=== PATIENT | male | born 1955 | race Caucasian/White ===

== ENCOUNTER 2016-10-17 06:14 | Inpatient (IN) | payer MEDICARE, MEDICAID ==
[~2016-10-17] VITALS: Ht 190.5 cm; Wt 92.3 kg
[2016-10-17] VITALS (9 sets, daily range): BP systolic 100–131; BP diastolic 59–80
--- NOTE | ~2016-10-17 | PR ---
[place], [place] PROGRESS NOTE NAME: PAU PIMENTEL UNIT #: [id number] ROOM: 416 DOCTOR: GEM ROMERO MD BIRTHDATE: [birth year] DOS: 10/18/2016 REASON FOR VISIT: Congestive heart failure. HISTORY OF PRESENT ILLNESS: The patient is feeling better, less short of breath, denies any PND or orthopnea. Edema is much better. No chest pain. No palpitations or dizziness. No nausea, vomiting. No headaches. No blurred vision, double vision, no tingling, numbness or weakness. No hematemesis, no hemoptysis. REVIEW OF SYSTEMS: Review of the 8 systems negative except as mentioned above. RHYTHM STRIPS: The patient was in sinus rhythm. PHYSICAL EXAMINATION: VITAL SIGNS: Blood pressure 102/58, pulse 65, respiratory rate is 16. GENERAL: Alert, comfortable, in no acute distress. HEENT: Pupils are round and equal. No jaundice. NECK: Supple, no distended neck veins, no carotid bruit. CHEST: Symmetrical, nontender. ICD site is unremarkable. LUNGS: Good air entry bilaterally. HEART: Regular rhythm, no S3, grade 1-2/6 systolic murmur. ABDOMEN: Bowel sounds normal. EXTREMITIES: Showed trace edema. Distal pulses are palpable. SKIN: Warm and dry. No cyanosis, no clubbing. IMPRESSION: 1. Acute on chronic systolic heart failure, improving. 2. Severe LV dysfunction with EF 10% by echo in 2014. 3. Coronary artery disease, status post 4 stents, the recent stent is about a year ago. 4. Mild valvular heart disease. 5. Status post ICD. RECOMMENDATIONS: 1. Continue current medications. 2. Tomorrow switch to the Lasix p.o. and he is tolerating low dose Coreg. 3. Resume his home medications, digoxin and Aldactone. 4. Possible discharge tomorrow and he will follow with his revenue stamp clerk, Dr. Bishop in 1-2 weeks. The above treatment was discussed with the patient and his family members and all questions were answered. [place], [place] PROGRESS NOTE NAME: PAU PIMENTEL UNIT #: [id number] ROOM: 416 DOCTOR: HEATHERGEM HWANG MD BIRTHDATE: [birth year] GEM ROMERO MD CM:PNMARIA ANTONIA [id number] GEM ROMERO MD 10/18/16 2118 interface
--- NOTE | ~2016-10-17 | CON ---
[place], [place] REPORT OF CONSULTATION NAME: PAU PIMENTEL [facility] #: [id number] UNIT #: [id number] ROOM: 416 DOCTOR: HUSSAIN CARPENTER MD BIRTHDATE: [birth year] DOS: 10/18/2016 PULMONARY CONSULTATION, EVALUATION AND MANAGEMENT REASON FOR CONSULTATION: Assess the patient's current pleural fluid. HISTORY OF PRESENT ILLNESS: This is a 61-year-old white male who has been recently admitted to the hospital. The patient has been noted with AICD discharge for this patient and discharged home for this patient on the of this month after medical management of that kind of problem. He presented to the hospital Emergency Room on 10/17/2016 with symptoms of near syncopal episode, shortness of breath with exertion and chest pain. Chest pain was described across the chest. The symptoms of the patient have been ongoing for the past couple of days as well. The patient has been noted with very severe cardiomyopathy, which is noted ischemic in nature at 10% EF. The patient has been noted with symptoms of mild cough. Denies symptoms of wheezing. He does complain of symptoms of tightness in the chest. The patient denies symptoms of hemoptysis. REVIEW OF SYSTEMS: CONSTITUTIONAL: This patient, which has been noted with fatigue and tiredness. Denies symptoms of fever or chills. EYES: Denies any burning, redness, or tenderness. EARS, NOSE, THROAT: No sore throat, hoarseness, otalgia, postnasal drainage. CARDIOVASCULAR SYSTEM: Denies anginal pain, edema or pain of the lower extremities. GASTROINTESTINAL: Denies dysphagia, nausea, vomiting, diarrhea, abdominal pain, hematemesis, melena, hematochezia, or abnormal weight loss history. GENITOURINARY: Denies dysuria, suprapubic pain, hematuria. MUSCULOSKELETAL: Denies acute joint pain, redness, or tenderness. SKIN: No lesions or rashes. Remaining systems were reviewed with the patient, they were noted all negative. PAST MEDICAL HISTORY: 1. History of chronic congestive heart failure with ischemic cardiomyopathy, left ventricular ejection fraction 10%. 2. History of cardiac dysrhythmia with AICD in place. 3. Coronary artery disease. 4. Secondary hypercoagulable state for this patient was also described in the history. 5. Hyperlipidemia. SOCIAL HISTORY: The patient stated that he is , lives at home. He does not have any history of occupation related pulmonary exposure history. Tobacco use noted since teenager, 2 packs of cigarettes per day that was discontinued in 2016. He is and has 3 children. PAST SURGICAL HISTORY: 1. Cardiac catheterization, coronary artery stent insertion. [place], [place] REPORT OF CONSULTATION NAME: PAU PIMENTEL UNIT #: [id number] ROOM: 416 DOCTOR: HUSSAIN CARPENTER MD BIRTHDATE: [birth year] 2. AICD insertion. 3. Left cataract extraction. 4. Right index finger amputation as well. FAMILY HISTORY: The patient reported as father at age of 7070 years old, complication of heart attack and congestive heart failure. Mother at the age of 7070 years old for this patient from complication related to congestive heart failure as well. HOME MEDICATIONS: Noted use of aspirin, albuterol sulfate, Plavix, digoxin, furosemide, warfarin, Aldactone and simvastatin. DRUG ALLERGIES: Noted with no known drug allergies. PHYSICAL EXAMINATION: GENERAL: A 61-year-old white male who has been currently noted to be awake and alert at this time without any acute distress. The height for the patient recorded by the nursing staff at the time of current admission with height of 6 feet 3 inches, weight of 90 kg, BMI 25.7. VITAL SIGNS: For the patient, which has been recorded shows temperature noted as normal. The respiratory recorded 18-22, heart rate of 75-65, blood pressure 102/58-131/77. Pulse oxygen saturation of the patient recorded on room air 98% saturation. HEENT: Shows head was atraumatic. Eyes nonicterus. NECK: Supple. CARDIOVASCULAR SYSTEM: S1, S2 is audible. LUNGS: For this patient was noted without any crackles. Breaths are noted decreased in the right lung. The left lung was noted clear. ABDOMEN: Soft, nontender. Bowel sounds are present. It was flat. CENTRAL NERVOUS SYSTEM: Cranial nerves 2-12 intact. No focal deficits. MUSCULOSKELETAL: No deformities for this patient or swelling or redness. SKIN: No lesions or rashes. LABORATORY DATA: The PT/INR for the patient that were done yesterday noted 4.3 with D-dimer 0.92. The CMP for this patient on 10/17/2016 shows glucose 180, BUN and creatinine was normal. The CK-MB and troponin for the patient, which were done yesterday and this morning all 4 sets were normal. CBC of the patient that was done yesterday on admission was noted as a normal CBC. CMP of the patient that was done yesterday on admission showed normal BUN and creatinine. CMP of this morning shows glucose 127. Remaining CMP remains normal. CBC this morning was again noted normal WBC count, platelet count, hemoglobin and hematocrit. The INR this morning noted 2.2, decreased from the previous level and PTT were noted 32.6. The labs on this patient, CT scan of the head that was done on 10/17/2016 on admission was noted no acute intracranial pathologies. Chest x-ray of the patient that was done on admission shows evidence of pleural fluid appeared to be loculated in the right side. The chest x-ray of the patient AICD noted in place. Chest x-ray of the patient that was done on previous admission 10/06/2016 for the patient shows prominent pulmonary arterial branches with infiltration and pleural fluid was noted. Small pleural fluid was suspected in the right lung. The CT of the chest yesterday the patient was also [place], [place] REPORT OF CONSULTATION NAME: PAU PIMENTEL UNIT #: [id number] ROOM: 416 DOCTOR: WALE CARPENTER MDM BIRTHDATE: [birth year] reviewed shows there was no evidence of pulmonary embolism. The patient was noted with cardiomegaly with moderate to large partially loculated pleural fluid on the right side as well. Depending area of atelectasis noted in the left lower lung. A 2 cm hypodense left adrenal lesion noted further characterization was not done by the radiologist. IMPRESSION: 1. The patient who has been noted interval development of partially loculated right pleural fluid may be related to the congestive heart failure with the loculation with other differential diagnosis of pneumonia, malignancy and other disorders remains in consideration. 2. The patient with severe ischemic cardiomyopathy. The patient which has been known previously cardiac dysrhythmias as well by history. 3. Chronic anticoagulation. The patient with mild Coumadin toxicity on admission, which has been gradually improving. 3. History of having nicotine abuse without any previous diagnosis, pulmonary disease with suspected diagnosis of chronic obstructive pulmonary disease as well. PLAN OF TREATMENT: Keep the patient off the anticoagulation. The CT/ultrasound-guided thoracentesis was done loculated pleural fluid to be done by the interventional radiologist either today or tomorrow to be done. Fluid will be analyzed. At this time, the patient has not been started on antibiotics for this patient since he was not showing any signs or manifestations of fever or chills or signs of acute sepsis or infection. Continuation of the other previous treatment and his home medications. Keep the patient off the anticoagulation for the thoracentesis completion. Cytology of pleural fluid the patient will be done. Other labs will be done including the cultures. Further treatment changes will be done based on progression of the illness and availability of the information in the next few days for the patient pleural fluid or others. If the fluid would not be able to resolve the patient and noted an exudative effusion the patient possibly will be recommended about assessment for the video-assisted thoracoscopy procedure. Assessment and management has been discussed one of the patient's children as well as his spouse in detail in the room. Thank you for allowing me to participate in the care of this patient. HUSSAIN BARKSDALE MD CM:CONSTR:REPORT OF CONSULTATION 1123 10/19/16 1329 interface
--- NOTE | ~2016-10-17 | CON ---
[place], [place] REPORT OF [facility]ULTATION [id number] UNIT #: [id number] ROOM: 416 DOCTOR: GEM ROMERO MD BIRTHDATE: [birth year] DOS: 10/17/2016 REASON FOR CONSULTATION: CHF. HISTORY OF PRESENT ILLNESS: The patient is a 61-year-old gentleman with history of coronary artery disease, severe ischemic cardiomyopathy, status post ICD came to the Emergency Room with dyspnea on exertion. He also had some dizziness as well as some midsternal chest pains at rest. His shortness of breath is slightly progressive. He has been compliant with his medications at home and does not eat excessive sodium. His zoology teacher is in [place], Dr. Chavez. He denies any palpitations or syncope. No edema or orthopnea, no PND, no fever or chills. No nausea, vomiting, diarrhea. No dysuria or hematuria. No blurry vision, double vision. No joint pains or swelling. No headaches. REVIEW OF SYSTEMS: Review of the 8 systems negative except as mentioned above. Notes that his chest pains are dull pain in the midsternal area at rest. No radiation. It lasts for a few seconds to minutes and relieves on its own. PAST MEDICAL HISTORY: 1. Coronary artery disease, status post total of 4 stents, last stent was about a year ago. 2. Severe ischemic cardiomyopathy, EF of 10% by echo 2014. 3. Status post ICD about 2 years ago. 4. Hypertension. 5. Valvular heart disease. 6. Anemia. PAST SURGICAL HISTORY: 1. History of ICD implant. 2. Amputation of the right finger. 3. Left cataract surgery. SOCIAL HISTORY: The patient quit about a year ago, used to smoke 2 packs a day, does not use alcohol, does not use illicit drugs. FAMILY HISTORY: Father at the age of 70s from heart attack. Mother in 70s due to heart failure. ALLERGIES: No known drug allergies. HOME MEDICATIONS: Reviewed. He was not on beta blockers or ELIGIO at home. PHYSICAL EXAMINATION: VITAL SIGNS: Blood pressure 105/60, pulse 66, respiratory rate 20. GENERAL: Alert, comfortable, in no acute distress. HEENT: Pupils are round and equal. No jaundice. Tongue was moist and pharynx was clear. NECK: Supple, no distended neck veins, no carotid bruit. CHEST: Symmetrical, nontender. ICD is unremarkable. LUNGS: Clear to auscultation bilaterally. Air entry diminished at the bases, [place], [place] REPORT OF CONSULTATION NAME: PAU PIMENTEL UNIT #: [id number] ROOM: 416 DOCTOR: GEM ROMERO MD BIRTHDATE: [birth year] especially in the right base. ABDOMEN: Benign, nontender. Bowel sounds normal. EXTREMITIES: Showed 1+ edema. SKIN: Warm and dry. No cyanosis, no clubbing. Distal pulses are palpable. NEUROLOGIC: The patient is alert, oriented. No focal neurologic deficit. RECTAL: Deferred. GENITOURINARY: Deferred. MUSCULOSKELETAL: No joint tenderness or swelling. PSYCHIATRIC: Good mood and affect. REVIEW OF THE DIAGNOSTIC TESTS: Labs and EKG reviewed. EKG sinus rhythm with borderline LVH. INR 4.3. CBC, chemistry and labs noted. IMPRESSION: 1. Acute on chronic systolic heart failure. 2. Severe ischemic cardiomyopathy, EF 10%. 3. Status post ICD. 4. Coronary artery disease, status post 4 stents, recent stent was 2015, details unknown. 5. Coagulopathy. RECOMMENDATIONS: 1. Continue diuretics and monitor daily weights and in and outs. 2. Start low dose beta marycruz, Coreg 3.125 b.i.d. and monitor his blood pressures. 3. Continue the rest of the cardiac medications including aspirin, Plavix, Aldactone and digoxin. 4. If the blood pressure and renal functions are stable, I would consider adding a low-dose ELIGIO inhibitors. 5. 2-D echo was ordered and is pending. 6. Hold his Coumadin and resume Coumadin when his INR comes to below 2.5. GEM ROMERO MD CM:CONSTR:REPORT OF CONSULTATION 2248 10/18/16 0525 interface
--- NOTE | ~2016-10-17 | PR ---
[place], [place] PROGRESS NOTE NAME: PAU PIMENTEL [facility] #: [id number] UNIT #: [id number] ROOM: 416 DOCTOR: SHAMIR ENAMORADO MD,HUSSAIN BIRTHDATE: [birth year] DOS: 10/19/2016 SUBJECTIVE: The patient was seen and examined on 10/19/2016. He has been noted much improvement in the shortness of breath. The patient underwent thoracentesis yesterday with 800 mL of pleural fluid removed from the right pleural space without any difficulty. The patient denies symptoms of chest pain, abdominal pain. OBJECTIVE: VITAL SIGNS: Shows the normal temperature, respirations 16, heart rate 59, blood pressure 94/56-105/69. Intake for the patient is 980 mL; output 2800 mL containing 800 mL of pleural fluid as well. The pulse oxygen saturation on room air was 98% saturation. HEENT: Shows no new changes. NECK: Supple. CARDIOVASCULAR SYSTEM: S1, S2 audible. LUNGS: The patient noted with much improvement in the air entry of the lungs were noted bilaterally and especially in the right side. ABDOMEN: Soft, nontender. LABORATORY DATA: The BMP of the patient noted normal BUN, creatinine and the other chemistry. CBC of the patient noted mild anemia, normal WBC count and platelet count. Characteristics of the right pleural fluid the patient was noted with total of 178 wbc's in the cell count, 39% neutrophils, 43% lymphocytes and various other cells. Glucose 141 in the chemistry noted. Total protein of 2.3. LDH 75, cholesterol less than 50, triglyceride 13. Amylase 19 and albumin 1.5. All the findings were noted consistent with transudative pleural effusion. The cytology of pleural fluid was pending. The culture for the patient's pleural fluid for this patient were pending as well; however, the Gram stain does not show any organism, moderate wbc's were noted. The chest x-ray that I ordered for this patient this morning, PA lateral view, the patient was reviewed with the patient shows marked improvement in resolution of pleural fluid for this patient, which was noted partially loculated previously. Clear lungs were noted. Lungs were noted well expanded. The AICD noted in place in the left chest. IMPRESSION: The patient with severe ischemic cardiomyopathy with pleural fluid. The patient is status post thoracentesis for the patient consistent with transudative effusion related to underlying congestive heart failure is most likely reason. Cytology of pleural fluid was pending. PLAN OF TREATMENT: He has been noted stable enough at this time ambulating with the patient with current resolution of pleural fluid could be considered for home discharge. Continue treatment for the congestive heart failure to optimize the treatment under care of Cardiology. Outpatient follow would be suggested for patient post-discharge in my office to reassess. [place], [place] PROGRESS NOTE NAME: PAU PIMENTEL Andrea UNIT #: [id number] ROOM: [facility] DOCTOR: HUSSAIN CARPENTER MD BIRTHDATE: [birth year] HUSSAIN BARKSDALE MD CM:PNTRANS [id number] HUSSAIN ENAMORADO MD 10/19/16 1217 interface
[~2016-10-17 06:14] MED LIST: ALBUTEROL0.09 MG/A2 IH; ALDACTONE25 M1 PO; ASPIRIN325 M2 PO; ASPIRIN325 MG PO; COREG3.125 MG PO; Clopidogrel75 MG PO; DIGOXIN0.125 MG PO; LASIX20 MG PO; LASIX40 MG PO; LISINOPRIL5 MG PO; LOVASTATIN40 MG PO; METOPROLOL SR50 MG PO; PROAIR HFA8.5 GM IH; SERTRALINE HYDR25 MG PO; SIMVASTATIN20 MG PO; WARFARIN SODIUM4 MG PO
[2016-10-17 06:29] LABS: BASO % 0.6 % (0.0-1.0); EOS # 0.1 10*3/uL (0.0-0.4); HEMATOCRIT 42.7 % (42.0-52.0); HEMOGLOBIN 14.3 g/dl (14.0-18.0); LYMPH # 0.8 10*3/uL (1.3-4.4); LYMPH % 11.4 % (27.0-41.0); MEAN CELL VOLUME 94.5 fl (80.0-94.0); MEAN CORPUSCULAR HGB 31.6 pg (27.0-31.0); MEAN CORPUSCULAR HGB CONC 33.5 g/dl (33.0-37.0); MONO # 0.6 10*3/uL (0.1-1.0); MONO % 8.2 % (3.0-9.0); NEUT # 5.4 10*3/uL (2.3-7.9); NEUT % 78.5 % (47.0-73.0); PLATELET COUNT AUTOMATED 195 10*3/uL (130-400); RED BLOOD COUNT 4.52 10*6/uL (4.50-5.90); RED CELL DISTRI WIDTH 13.7 % (0-14.5); WHITE BLOOD COUNT 6.9 10*3/uL (4.8-10.8)
[2016-10-17 06:45] LABS: INTERNATIONAL NORM RATIO 4.3 (2.0-3.5); PROTHROMBIN TIME 50.5 SECONDS (9.0-12.4)
[2016-10-17 06:48] LABS: ALKALINE PHOSPHATASE 77 U/L (45-117); BILIRUBIN, TOTAL 0.9 mg/dl (0.2-1.0); BUN 13 mg/dl (7-24); CARBON DIOXIDE 27 mmol/L (21-32); CHLORIDE 103 mmol/L (98-107); EST GLOM FILT AFRICAN AMERICAN > 60 ml/min; GLUCOSE 108 mg/dL (65-99); MAGNESIUM 2.3 mg/dL (1.5-2.1); POTASSIUM 4.5 mmol/L (3.5-5.1); SGOT/AST 20 IU/L (3-35); SGPT/ALT 21 U/L (12-78); SODIUM 140 mmol/L (136-145); TOTAL PROTEIN 7.9 gm/dL (6.4-8.2); TROPONIN I 0.041 ng/ml (<0.045)
[2016-10-17 12:14] LABS: TROPONIN I 0.041 ng/ml (<0.045)
[2016-10-17 17:33] LABS: TROPONIN I 0.037 ng/ml (<0.045)
[2016-10-18] VITALS: BP 97/54
[2016-10-18 00:56] LABS: CKMB 2.5 ng/ml (0.5-3.6)
[2016-10-18 01:02] LABS: TROPONIN I 0.048 ng/ml (<0.045)
[2016-10-18 06:48] LABS: BASO % 0.4 % (0.0-1.0); HEMATOCRIT 43.8 % (42.0-52.0); HEMOGLOBIN 14.6 g/dl (14.0-18.0); LYMPH # 0.5 10*3/uL (1.3-4.4); LYMPH % 9.1 % (27.0-41.0); MEAN CELL VOLUME 94.2 fl (80.0-94.0); MEAN CORPUSCULAR HGB 31.4 pg (27.0-31.0); MEAN CORPUSCULAR HGB CONC 33.3 g/dl (33.0-37.0); MEAN PLATELET VOLUME 10.6 fl (9.6-12.3); MONO # 0.2 10*3/uL (0.1-1.0); MONO % 3.9 % (3.0-9.0); NEUT # 4.5 10*3/uL (2.3-7.9); NEUT % 86.2 % (47.0-73.0); PLATELET COUNT AUTOMATED 228 10*3/uL (130-400); RED BLOOD COUNT 4.65 10*6/uL (4.50-5.90); RED CELL DISTRI WIDTH 13.3 % (0-14.5); WHITE BLOOD COUNT 5.2 10*3/uL (4.8-10.8)
[2016-10-18 07:23] LABS: BUN 15 mg/dl (7-24); CARBON DIOXIDE 28 mmol/L (21-32); CHLORIDE 101 mmol/L (98-107); CHOLESTEROL 154 mg/dL (<200); EST GLOM FILT AFRICAN AMERICAN > 60 ml/min; GLUCOSE 127 mg/dL (65-99); MAGNESIUM 2.4 mg/dL (1.5-2.1); PHOSPHOROUS 2.8 mg/dL (2.5-4.9); POTASSIUM 4.2 mmol/L (3.5-5.1); SGOT/AST 13 IU/L (3-35); SGPT/ALT 22 U/L (12-78); SODIUM 138 mmol/L (136-145); TOTAL PROTEIN 8.6 gm/dL (6.4-8.2)
[2016-10-18 07:26] LABS: ALKALINE PHOSPHATASE 91 U/L (45-117); BILIRUBIN, TOTAL 1.4 mg/dl (0.2-1.0); HDL CHOLESTEROL 42 mg/dl (40-60); LDL CHOLESTEROL 99 mg/dL (9-159); TRIGLYCERIDES 67 mg/dl (<150); VLDL CHOLESTEROL 13 mg/dL (6-40)
[2016-10-18 07:29] LABS: INTERNATIONAL NORM RATIO 2.2 (2.0-3.5); PROTHROMBIN TIME 24.1 SECONDS (9.0-12.4)
[2016-10-18 07:32] LABS: VITAMIN D, 25-HYDROXY 19.7 ng/mL (30-100)
[2016-10-18 07:33] LABS: FOLIC ACID 23.8 ng/mL (>5.38)
[2016-10-18 08:00] VITALS: BP 102/58
[2016-10-18 10:25] VITALS: BP 118/80
[2016-10-18 12:00] VITALS: BP 102/64
[2016-10-18 13:56] LABS: BODY FLUID RBC 1000 /uL
[2016-10-18 14:00] LABS: BODY FLUID TYPE PLEURAL; BODY FLUID WBC 178 /uL
[2016-10-18 14:14] LABS: BODY FLUID ALBUMIN 1.5 g/dL; BODY FLUID AMYLASE 19 U/L; BODY FLUID CHOLESTEROL < 50 mg/dl; BODY FLUID GLUCOSE 141 mg/dl; BODY FLUID LDH 75 IU/L; BODY FLUID PROTEIN 2.3 g/dl; BODY FLUID TRIGLYCERIDE 13 mg/dl
[2016-10-18 14:27] LABS: BF LYMPHOCYTES 43 %; BF MACROPHAGES 8 %; BF MESOTHELIALS 9 %; BF NEUTROPHILS 39 %
[2016-10-18 16:00] VITALS: BP 117/72
[2016-10-18 20:00] VITALS: BP 105/69
[2016-10-19] VITALS: BP 95/56
[2016-10-19 06:57] LABS: BASO % 0.5 % (0.0-1.0); EOS # 0.1 10*3/uL (0.0-0.4); HEMATOCRIT 41.3 % (42.0-52.0); HEMOGLOBIN 13.8 g/dl (14.0-18.0); LYMPH # 0.9 10*3/uL (1.3-4.4); LYMPH % 10.5 % (27.0-41.0); MEAN CELL VOLUME 94.3 fl (80.0-94.0); MEAN CORPUSCULAR HGB 31.5 pg (27.0-31.0); MEAN CORPUSCULAR HGB CONC 33.4 g/dl (33.0-37.0); MEAN PLATELET VOLUME 10.8 fl (9.6-12.3); MONO # 0.5 10*3/uL (0.1-1.0); MONO % 6.7 % (3.0-9.0); NEUT # 6.6 10*3/uL (2.3-7.9); NEUT % 80.9 % (47.0-73.0); PLATELET COUNT AUTOMATED 231 10*3/uL (130-400); RED BLOOD COUNT 4.38 10*6/uL (4.50-5.90); RED CELL DISTRI WIDTH 13.4 % (0-14.5); WHITE BLOOD COUNT 8.1 10*3/uL (4.8-10.8)
[2016-10-19 07:29] LABS: BUN 20 mg/dl (7-24); CARBON DIOXIDE 27 mmol/L (21-32); CHLORIDE 101 mmol/L (98-107); EST GLOM FILT AFRICAN AMERICAN > 60 ml/min; GLUCOSE 88 mg/dL (65-99); POTASSIUM 3.8 mmol/L (3.5-5.1); SODIUM 140 mmol/L (136-145)
[2016-10-19 07:35] LABS: INTERNATIONAL NORM RATIO 1.7 (2.0-3.5); PROTHROMBIN TIME 18.3 SECONDS (9.0-12.4)
[2016-10-19 08:00] VITALS: BP 94/56
[2016-10-19 10:07] VITALS: BP 95/65
[2016-10-19] MEDS ORDERED: D-1000 185 MG-11 TAB PO (10:38)
[2016-10-19] MEDS ORDERED: LASIX40 MG PO (10:38)
[2016-10-19] MEDS ORDERED: CARVEDILOL3.125 MG PO (10:41)
[2016-10-19 12:00] VITALS: BP 108/76
== END 2016-10-19 12:29 | disposition home or self-care (01) | DRG 291 ==
LOC: ED 06:14 → 4E 09:48 → EDHOLD 09:48 → 4E 10:21
PROVIDERS: Emergency Medicine Emergency Medical Services; Hospitalist; Internal Medicine; Internal Medicine Critical Care Medicine
PROC: 0W993ZZ Drainage of Right Pleural Cavity, Percutaneous Approach (ICD-10-PCS; principal; 2016-10-18)
PROC: 30233K1 Transfusion of Nonautologous Frozen Plasma into Peripheral Vein, Percutaneous Approach (ICD-10-PCS; principal; 2016-10-18)
PROC: 30233L1 Transfusion of Nonautologous Fresh Plasma into Peripheral Vein, Percutaneous Approach (ICD-10-PCS; principal; 2016-10-18)
DX: I11.0 Hypertensive heart disease with heart failure (principal); J18.9 Pneumonia, unspecified organism; D68.9 Coagulation defect, unspecified; D68.69 Other thrombophilia; E83.41 Hypermagnesemia; Z79.01 Long term (current) use of anticoagulants; I25.5 Ischemic cardiomyopathy; E78.5 Hyperlipidemia, unspecified; I34.0 Nonrheumatic mitral (valve) insufficiency; I50.23 Acute on chronic systolic (congestive) heart failure; D53.9 Nutritional anemia, unspecified; R00.1 Bradycardia, unspecified; R06.82 Tachypnea, not elsewhere classified; R22.9 Localized swelling, mass and lump, unspecified; T45.515A Adverse effect of anticoagulants, initial encounter; J44.9 Chronic obstructive pulmonary disease, unspecified; I25.118 Atherosclerotic heart disease of native coronary artery with other forms of angina pectoris; Z82.49 Family history of ischemic heart disease and other diseases of the circulatory system; Z95.810 Presence of automatic (implantable) cardiac defibrillator; Z95.5 Presence of coronary angioplasty implant and graft; Z87.891 Personal history of nicotine dependence; Z79.82 Long term (current) use of aspirin; Z79.899 Other long term (current) drug therapy; Z98.42 Cataract extraction status, left eye; Z89.021 Acquired absence of right finger(s); Y92.89 Other specified places as the place of occurrence of the external cause

== ENCOUNTER 2016-10-26 12:43 | Inpatient (IN) | payer MEDICARE, MEDICAID ==
[~2016-10-26] VITALS: Ht 190.5 cm; Wt 89.4 kg
--- NOTE | ~2016-10-26 | PR ---
[place], [place] [facility]GRESS [id number] #: [id number] ROOM: 416 DOCTOR: HEATHER BENNETTGEM BIRTHDATE: [birth year] DOS: 10/28/2016 CARDIOLOGY FOLLOWUP VISIT NOTE REASON FOR VISIT: Congestive heart failure and elevated cardiac enzymes. HISTORY OF PRESENT ILLNESS: The patient is alert, oriented. Denies any chest pain or shortness of breath, no edema, no orthopnea, no PND. No palpitations or dizziness. No nausea, vomiting, diarrhea, no fever and chills, no cough, no hemoptysis. REVIEW OF SYSTEMS: Review of the 8 systems negative except as described above. RHYTHM STRIPS: The patient was in sinus rhythm. PHYSICAL EXAMINATION: VITAL SIGNS: Blood pressure 108/66, pulse 71, and respirations 20. GENERAL: Alert, comfortable, in no acute distress. HEENT: Pupils round, equal, no jaundice. NECK: Supple, no distended neck veins, no carotid bruit. CHEST: Symmetrical, nontender. ICD unremarkable. LUNGS: Clear to auscultation bilaterally except few scattered rhonchi. HEART: Regular rhythm. No S3. Grade 1/6 systolic murmur. ABDOMEN: Benign, nontender. Bowel sounds normal. EXTREMITIES: Showed trace edema. Distal pulses are palpable. SKIN: Warm and dry. No cyanosis, no clubbing. NEUROLOGIC: The patient is alert, oriented. No focal neurologic deficit. REVIEW OF THE DIAGNOSTIC TESTS: His rhythm strips and labs reviewed. WBC count if 19.5, INR 1.9. IMPRESSION: 1. Acute on chronic systolic heart failure, better. 2. Borderline elevation of troponin, possible type 2 NSTEMI, the patient asymptomatic. 3. Coronary artery disease, status post multiple stents. 4. Status post ICD. 5. Severe ischemic cardiomyopathy, EF 10% to 15%. RECOMMENDATIONS: 1. Continue current medications. 2. Lexiscan stress test tomorrow. 3. Continue aspirin, Plavix, beta blockers, nitrates and statins. 4. Further recommendation based on his stress test tomorrow. 5. Follow with his director of physiotherapy services, Dr. Chavez after his discharge. 6. There is no family at bedside. [place], [place] PROGRESS NOTE NAME: PAU PIMENTEL UNIT #: [id number] ROOM: [facility] DOCTOR: GEM ROMERO MD BIRTHDATE: [birth year] GEM ROMERO MD CM:JHONNY 21 GEM ROMERO MD 10/29/166 interface
--- NOTE | ~2016-10-26 | ST ---
[place], [place] EXERCISE STRESS TEST REPORT NAME: PAU PIMENTEL [facility] #: [id number] UNIT #: [id number] ROOM: 416 DOCTOR: EJ BARNARD MD BIRTHDATE: [birth year] DOS: 10/29/2016 LEXISCAN STRESS EKG REFERRING PHYSICIAN: Dr. Levin. INDICATION: CHF. PROCEDURE: The patient underwent standard protocol Lexiscan stress EKG. The patient's baseline EKG showed normal sinus rhythm with nonspecific ST-T wave changes. The left anterior fascicular block. The patient's baseline heart rate was 67 with a blood pressure of 108/60. The patient's peak heart rate was 85 with a blood pressure of 88/50. The patient denied any chest pain. The patient had no arrhythmias. The patient had no significant ST changes. SUMMARY OF FINDINGS: 1. Unremarkable Lexiscan stress EKG. 2. Please see separate report for perfusion scan results. EJ BARNARD MD CM:STRESS:EXERCISE STRESS TEST REPORT 1520 [id number] EJ BARNARD MD
--- NOTE | ~2016-10-26 | CON ---
[place], [place] REPORT OF CONSULTATION NAME: PAU PIMENTEL [facility] #: [id number] UNIT #: [id number] ROOM: 416 DOCTOR: GEM ROMERO MD BIRTHDATE: [birth year] DOS: 10/27/2016 REASON FOR CONSULTATION: CHF and elevated cardiac enzymes. HISTORY OF PRESENT ILLNESS: The patient is a 61-year-old with history of cardiomyopathy, coronary artery disease, previous stents, status post ICD, COPD, severe LV dysfunction, came to the Emergency Room for progressive shortness of breath for the past 2 days. He had a history of end-stage cardiomyopathy, and his stock feeder is in [place], Dr. Chavez. Apparently, he was in the hospital last week and discharged a few days ago for his CHF. He did underwent thoracentesis by Dr. Leong. symptoms of progressive shortness of breath for the past few days. Denies any chest pain, dizziness or syncope. No edema, no orthopnea, no fever and chills. He did have some productive cough with greenish brown sputum, but no fever or chills. No syncope. No nausea, vomiting, diarrhea. No headaches, no blurred vision or double vision, no tingling, numbness or weakness. No syncopal attacks. REVIEW OF SYSTEMS: Review of the 8 systems negative except as described above. PAST MEDICAL HISTORY: 1. Coronary artery disease, status post multiple stents. The last stent was about 2-3 years ago, details unknown. 2. Severe ischemic cardiomyopathy, EF 10-15%. 3. Status post ICD. 4. COPD. 5. Emphysema. 6. Hypertension. 7. Dyslipidemia. 8. Valvular heart disease. PAST SURGICAL HISTORY: History of ICD, history of cataract surgery, history of right finger amputation. SOCIAL HISTORY: The patient does not use illicit drugs, does not drink. Quit smoking about a year ago. FAMILY HISTORY: Nil contributory due to his history: Father at the age of 70 from heart attack. Mother at the age 70 from heart failure. ALLERGIES: No known drug allergies. HOME MEDICATIONS: Reviewed. PHYSICAL EXAMINATION: VITAL SIGNS: Blood pressure 104/66, pulse 64, respiratory rate is 18. GENERAL: Alert, comfortable, in no acute distress. HEENT: Pupils are round and equal. No jaundice. NECK: Supple. No distended neck veins. No carotid bruit. Tongue was moist and pharynx was clear. CHEST: Symmetrical, nontender. ICD area is unremarkable. [place], [place] REPORT OF CONSULTATION NAME: PAU PIMENTEL UNIT #: [id number] ROOM: [facility] DOCTOR: GEM ROMERO MD BIRTHDATE: [birth year] LUNGS: Few scattered rhonchi, diminished at bases. HEART: Regular rhythm. No S3. Grade 1/6 systolic murmur. EXTREMITIES: Showed 1+ pitting edema. SKIN: Warm and dry. No cyanosis, no clubbing. NEUROLOGIC: The patient is alert, oriented. No focal neurologic deficit. RECTAL: Deferred. GENITOURINARY: Deferred. REVIEW OF THE DIAGNOSTIC TESTS: CBC, chemistry reviewed. Cardiac enzymes included elevated troponin, the highest was 0.057, creatinine 1.3, proBNP 4114. IMPRESSION: 1. Acute on chronic systolic heart failure. 2. Borderline elevation of troponin, possibly due to type [address]-segment elevation myocardial infarction. The patient is chest pain free. 3. Severe ischemic cardiomyopathy, EF 10-15%. 4. Status post ICD. 5. Coronary artery disease, status post multiple stents. 6. Chronic obstructive pulmonary disease exacerbation. 7. Mild valvular heart disease. RECOMMENDATIONS: 1. Continue current medications including Coumadin, Aldactone, digoxin, Zocor, Plavix, Lasix, aspirin. 2. Resume his beta marycruz, Coreg. 3. Add isosorbide 10 mg twice a day. The patient was not on ELIGIO or ARB due to his low blood pressure. 4. Continue to monitor daily weights, in and outs and urine output. 5. I would recommend Lexiscan stress test on Saturday due to his elevated troponin. 6. We will interrogate his ICD today. 7. We will follow with his Dr. Chavez after the discharge. 8. Above treatment and plan discussed with the patient and all questions were answered. GEM ROMERO MD CM:CONSTR:REPORT OF CONSULTATION [id number] 10/28/16 0056 interface
[~2016-10-26 12:43] MED LIST changes: +CARVEDILOL3.125 MG PO; +D-1000 185 MG-11 TAB PO
[2016-10-26 13:08] VITALS: BP 103/57
[2016-10-26 13:31] LABS: BASO # 0.1 10*3/uL (0.0-0.1); BASO % 0.9 % (0.0-1.0); EOS # 0.1 10*3/uL (0.0-0.4); EOS % 1.4 % (1.0-4.0); HEMATOCRIT 43.3 % (42.0-52.0); HEMOGLOBIN 14.6 g/dl (14.0-18.0); LYMPH # 0.8 10*3/uL (1.3-4.4); LYMPH % 11.8 % (27.0-41.0); MEAN CELL VOLUME 95.2 fl (80.0-94.0); MEAN CORPUSCULAR HGB 32.1 pg (27.0-31.0); MEAN CORPUSCULAR HGB CONC 33.7 g/dl (33.0-37.0); MEAN PLATELET VOLUME 10.4 fl (9.6-12.3); MONO # 0.5 10*3/uL (0.1-1.0); MONO % 7.7 % (3.0-9.0); NEUT # 5.5 10*3/uL (2.3-7.9); NEUT % 77.8 % (47.0-73.0); PLATELET COUNT AUTOMATED 214 10*3/uL (130-400); RED BLOOD COUNT 4.55 10*6/uL (4.50-5.90); RED CELL DISTRI WIDTH 13.5 % (0-14.5)
[2016-10-26 13:39] LABS: INTERNATIONAL NORM RATIO 2.6 (2.0-3.5); PROTHROMBIN TIME 29.6 SECONDS (9.0-12.4)
[2016-10-26 13:47] LABS: ALBUMIN 3.6 gm/dl (3.1-4.5); ALKALINE PHOSPHATASE 77 U/L (45-117); BILIRUBIN, TOTAL 0.8 mg/dl (0.2-1.0); BUN 15 mg/dl (7-24); C-REACTIVE PROTEIN 1.92 MG/DL (0-0.3); CARBON DIOXIDE 31 mmol/L (21-32); CHLORIDE 103 mmol/L (98-107); CKMB 1.9 ng/ml (0.5-3.6); CPK 42 U/L (39-308); EST GLOM FILT AFRICAN AMERICAN > 60 ml/min; GLUCOSE 131 mg/dL (65-99); MAGNESIUM 2.4 mg/dL (1.5-2.1); POTASSIUM 4.6 mmol/L (3.5-5.1); SGOT/AST 12 IU/L (3-35); SGPT/ALT 12 U/L (12-78); SODIUM 140 mmol/L (136-145); TOTAL PROTEIN 8.1 gm/dL (6.4-8.2)
[2016-10-26 13:50] LABS: TROPONIN I 0.057 ng/ml (<0.045)
[2016-10-26 15:15] VITALS: BP 102/64
[2016-10-26 16:00] VITALS: BP 110/70
[2016-10-26 16:23] VITALS: BP 110/70
[2016-10-26 20:00] VITALS: BP 115/66; BP 122/52
[2016-10-27] VITALS: BP 102/57
[2016-10-27 06:18] LABS: HEMATOCRIT 43.4 % (42.0-52.0); HEMOGLOBIN 14.8 g/dl (14.0-18.0); MEAN CELL VOLUME 93.3 fl (80.0-94.0); MEAN CORPUSCULAR HGB 31.8 pg (27.0-31.0); MEAN CORPUSCULAR HGB CONC 34.1 g/dl (33.0-37.0); MEAN PLATELET VOLUME 11.1 fl (9.6-12.3); PLATELET COUNT AUTOMATED 226 10*3/uL (130-400); RED BLOOD COUNT 4.65 10*6/uL (4.50-5.90); RED CELL DISTRI WIDTH 13.3 % (0-14.5); WHITE BLOOD COUNT 7.8 10*3/uL (4.8-10.8)
[2016-10-27 06:48] LABS: ALBUMIN 3.8 gm/dl (3.1-4.5); ALKALINE PHOSPHATASE 78 U/L (45-117); BILIRUBIN, TOTAL 0.8 mg/dl (0.2-1.0); BUN 16 mg/dl (7-24); CARBON DIOXIDE 29 mmol/L (21-32); CHLORIDE 102 mmol/L (98-107); EST GLOM FILT AFRICAN AMERICAN > 60 ml/min; GLUCOSE 156 mg/dL (65-99); POTASSIUM 4.4 mmol/L (3.5-5.1); SGOT/AST 12 IU/L (3-35); SGPT/ALT 15 U/L (12-78); SODIUM 139 mmol/L (136-145); TOTAL PROTEIN 8.2 gm/dL (6.4-8.2)
[2016-10-27 07:23] LABS: LYMPHOCYTE # 0.5 10*3/uL (1.3-4.4); NEUTROPHIL # 7.3 10*3/uL (2.3-7.9); NEUTROPHILS 93 % (47-73); PLATELET SUFFICIENCY NORMAL (NORMAL); TOTAL CELLS COUNTED 100 #CELLS
[2016-10-27 08:00] VITALS: BP 104/66
[2016-10-27 12:00] VITALS: BP 108/65
[2016-10-27 16:00] VITALS: BP 119/65
[2016-10-27 20:00] VITALS: BP 113/69
[2016-10-28] VITALS: BP 105/57
[2016-10-28 06:08] LABS: HEMATOCRIT 42.5 % (42.0-52.0); HEMOGLOBIN 14.5 g/dl (14.0-18.0); MEAN CELL VOLUME 93.6 fl (80.0-94.0); MEAN CORPUSCULAR HGB 31.9 pg (27.0-31.0); MEAN CORPUSCULAR HGB CONC 34.1 g/dl (33.0-37.0); PLATELET COUNT AUTOMATED 245 10*3/uL (130-400); RED BLOOD COUNT 4.54 10*6/uL (4.50-5.90); RED CELL DISTRI WIDTH 13.2 % (0-14.5); WHITE BLOOD COUNT 19.5 10*3/uL (4.8-10.8)
[2016-10-28 06:33] LABS: INTERNATIONAL NORM RATIO 1.9 (2.0-3.5); PROTHROMBIN TIME 21.2 SECONDS (9.0-12.4)
[2016-10-28 06:34] LABS: BUN 23 mg/dl (7-24); CARBON DIOXIDE 30 mmol/L (21-32); CHLORIDE 100 mmol/L (98-107); EST GLOM FILT AFRICAN AMERICAN > 60 ml/min; GLUCOSE 145 mg/dL (65-99); POTASSIUM 4.4 mmol/L (3.5-5.1); SODIUM 138 mmol/L (136-145)
[2016-10-28 06:49] LABS: LYMPHOCYTE # 0.6 10*3/uL (1.3-4.4); MONOCYTE # 0.2 10*3/uL (0.1-1.0); NEUTROPHIL # 18.7 10*3/uL (2.3-7.9); NEUTROPHILS 96 % (47-73); PLATELET SUFFICIENCY NORMAL (NORMAL); TOTAL CELLS COUNTED 100 #CELLS
[2016-10-28 08:00] VITALS: BP 108/68
[2016-10-28 12:00] VITALS: BP 106/60
[2016-10-28 16:00] VITALS: BP 112/70
[2016-10-28 20:00] VITALS: BP 107/64
[2016-10-29] VITALS: BP 107/63
[2016-10-29 08:00] VITALS: BP 102/52; BP 108/56
[2016-10-29 13:30] VITALS: BP 117/75
[2016-10-29] MEDS ORDERED: DOXYCYCLINE100 M3 PO (15:56)
[2016-10-29] MEDS ORDERED: LISINOPRIL2.5 MG PO (15:56)
[2016-10-29] MEDS ORDERED: PREDNISONE10 MG PO (15:56)
[2016-10-29] MEDS ORDERED: ASPIRIN ADULT L81 M2 PO (15:56)
[2016-10-29] MEDS ORDERED: ISORDIL10 M1 PO (15:56)
== END 2016-10-29 17:01 | disposition home or self-care (01) | DRG 291 ==
LOC: ED 12:43 → 4E 15:01
PROVIDERS: Emergency Medicine; Internal Medicine
PROC: 3E073KZ Introduction of Other Diagnostic Substance into Coronary Artery, Percutaneous Approach (ICD-10-PCS; principal; 2016-10-29)
PROC: 4A02XM4 Measurement of Cardiac Total Activity, External Approach (ICD-10-PCS; principal; 2016-10-29)
DX: I11.0 Hypertensive heart disease with heart failure (principal); J18.9 Pneumonia, unspecified organism; Z79.01 Long term (current) use of anticoagulants; J44.1 Chronic obstructive pulmonary disease with (acute) exacerbation; J44.0 Chronic obstructive pulmonary disease with (acute) lower respiratory infection; I50.23 Acute on chronic systolic (congestive) heart failure; I34.0 Nonrheumatic mitral (valve) insufficiency; E78.5 Hyperlipidemia, unspecified; I25.10 Atherosclerotic heart disease of native coronary artery without angina pectoris; I25.5 Ischemic cardiomyopathy; Z89.021 Acquired absence of right finger(s); Z95.810 Presence of automatic (implantable) cardiac defibrillator; Z98.42 Cataract extraction status, left eye; Z95.818 Presence of other cardiac implants and grafts; Z87.891 Personal history of nicotine dependence; I25.2 Old myocardial infarction; Z82.49 Family history of ischemic heart disease and other diseases of the circulatory system; Z79.82 Long term (current) use of aspirin; Z79.899 Other long term (current) drug therapy

== ENCOUNTER 2016-11-01 20:19 | Emergency (ER) | payer MEDICARE, MEDICAID ==
[~2016-11-01 20:19] MED LIST changes: +ASPIRIN ADULT L81 M2 PO; +DOXYCYCLINE100 M3 PO; +ISORDIL10 M1 PO; +LISINOPRIL2.5 MG PO; +PREDNISONE10 MG PO
[2016-11-01] MEDS ORDERED: ISORDIL10 M1 PO (20:26)
[2016-11-01 20:48] LABS: BASO % 0.3 % (0.0-1.0); EOS # 0.1 10*3/uL (0.0-0.4); EOS % 1.2 % (1.0-4.0); HEMATOCRIT 46.1 % (42.0-52.0); HEMOGLOBIN 15.6 g/dl (14.0-18.0); IG # 0.1 10*3/uL (0.0-0.1); LYMPH # 1.2 10*3/uL (1.3-4.4); LYMPH % 13.7 % (27.0-41.0); MEAN CELL VOLUME 92.8 fl (80.0-94.0); MEAN CORPUSCULAR HGB 31.4 pg (27.0-31.0); MEAN CORPUSCULAR HGB CONC 33.8 g/dl (33.0-37.0); MEAN PLATELET VOLUME 10.5 fl (9.6-12.3); MONO # 0.7 10*3/uL (0.1-1.0); MONO % 7.7 % (3.0-9.0); NEUT # 6.9 10*3/uL (2.3-7.9); NEUT % 76.5 % (47.0-73.0); PLATELET COUNT AUTOMATED 270 10*3/uL (130-400); RED BLOOD COUNT 4.97 10*6/uL (4.50-5.90); RED CELL DISTRI WIDTH 13.3 % (0-14.5); WHITE BLOOD COUNT 9.1 10*3/uL (4.8-10.8)
[2016-11-01 21:03] LABS: PROTHROMBIN TIME 56.7 SECONDS (9.0-12.4)
[2016-11-01 21:08] LABS: ALBUMIN 3.9 gm/dl (3.1-4.5); ALKALINE PHOSPHATASE 64 U/L (45-117); BILIRUBIN, TOTAL 0.7 mg/dl (0.2-1.0); BUN 22 mg/dl (7-24); CARBON DIOXIDE 32 mmol/L (21-32); CHLORIDE 98 mmol/L (98-107); CKMB 2.9 ng/ml (0.5-3.6); CPK 29 U/L (39-308); EST GLOM FILT AFRICAN AMERICAN > 60 ml/min; GLUCOSE 92 mg/dL (65-99); INTERNATIONAL NORM RATIO 4.8 (2.0-3.5); MAGNESIUM 2.4 mg/dL (1.5-2.1); POTASSIUM 4.5 mmol/L (3.5-5.1); SGOT/AST 22 IU/L (3-35); SGPT/ALT 18 U/L (12-78); SODIUM 136 mmol/L (136-145); TOTAL PROTEIN 7.8 gm/dL (6.4-8.2)
[2016-11-01 21:09] LABS: C-REACTIVE PROTEIN < 0.29 MG/DL (0-0.3)
[2016-11-01 21:10] LABS: TROPONIN I 0.081 ng/ml (<0.045)
== END 2016-11-01 22:03 | disposition short-term general hospital (02) ==
LOC: ED 20:19
PROVIDERS: Student in an Organized Health Care Education/Training Program
DX: I20.9 Angina pectoris, unspecified (principal); R07.9 Chest pain, unspecified; Z87.891 Personal history of nicotine dependence; Z95.810 Presence of automatic (implantable) cardiac defibrillator; I25.10 Atherosclerotic heart disease of native coronary artery without angina pectoris; I50.9 Heart failure, unspecified; E78.5 Hyperlipidemia, unspecified; Z79.01 Long term (current) use of anticoagulants; Z79.82 Long term (current) use of aspirin

== ENCOUNTER 2016-12-04 16:41 | Inpatient (IN) | payer MEDICARE, MEDICAID ==
[~2016-12-04] VITALS: Ht 190.5 cm; Wt 93.9 kg
--- NOTE | ~2016-12-04 | EKG ---
[place], [place] ELECTROCARDIOGRAM REPORT NAME: PAU PIMENTEL UNIT #: [id number] ROOM: [facility] DOCTOR: NICK BRAVO MD BIRTHDATE: [birth year] DOS: 12/04/2016 TIME: 16:45 Normal sinus rhythm at rate 89 with first-degree AV block, left anterior fascicular block, poor precordial R-wave progression, nonspecific T-wave abnormalities, abnormal electrocardiogram. NICK BRAVO MD CM:EKGRPT:ELECTROCARDIOGRAM REPORT [id number] NICK BRAVO MD
[2016-12-04 16:45] VITALS: BP 116/64
[2016-12-04 16:57] LABS: BASO % 0.7 % (0.0-1.0); EOS # 0.1 10*3/uL (0.0-0.4); EOS % 2.1 % (1.0-4.0); HEMATOCRIT 37.9 % (42.0-52.0); HEMOGLOBIN 12.7 g/dl (14.0-18.0); LYMPH # 1.1 10*3/uL (1.3-4.4); LYMPH % 17.9 % (27.0-41.0); MEAN CELL VOLUME 92.2 fl (80.0-94.0); MEAN CORPUSCULAR HGB 30.9 pg (27.0-31.0); MEAN CORPUSCULAR HGB CONC 33.5 g/dl (33.0-37.0); MONO # 0.6 10*3/uL (0.1-1.0); MONO % 9.4 % (3.0-9.0); NEUT # 4.1 10*3/uL (2.3-7.9); NEUT % 69.6 % (47.0-73.0); PLATELET COUNT AUTOMATED 227 10*3/uL (130-400); RED BLOOD COUNT 4.11 10*6/uL (4.50-5.90); RED CELL DISTRI WIDTH 13.3 % (0-14.5); WHITE BLOOD COUNT 5.9 10*3/uL (4.8-10.8)
[2016-12-04 17:07] LABS: PROTHROMBIN TIME 10.7 SECONDS (9.0-12.4)
[2016-12-04] MEDS ORDERED: LIPITOR80 MG PO (17:09)
[2016-12-04] MEDS ORDERED: MAGNESIUM400 MG PO (17:10)
[2016-12-04] MEDS ORDERED: TOPROL XL25 MG PO (17:11)
[2016-12-04 17:14] LABS: ALBUMIN 3.5 gm/dl (3.1-4.5); ALKALINE PHOSPHATASE 86 U/L (45-117); BILIRUBIN, TOTAL 0.4 mg/dl (0.2-1.0); BUN 18 mg/dl (7-24); C-REACTIVE PROTEIN 0.51 MG/DL (0-0.3); CARBON DIOXIDE 27 mmol/L (21-32); CHLORIDE 101 mmol/L (98-107); CKMB 2.7 ng/ml (0.5-3.6); CPK 43 U/L (39-308); EST GLOM FILT AFRICAN AMERICAN > 60 ml/min; GLUCOSE 93 mg/dL (65-99); MAGNESIUM 2.3 mg/dL (1.5-2.1); POTASSIUM 4.3 mmol/L (3.5-5.1); SGOT/AST 19 IU/L (3-35); SGPT/ALT 20 U/L (12-78); SODIUM 138 mmol/L (136-145); TOTAL PROTEIN 7.5 gm/dL (6.4-8.2)
[2016-12-04 17:18] LABS: TROPONIN I 0.048 ng/ml (<0.045)
[2016-12-04] MEDS ORDERED: [UNRECOGNIZED DRUG - OTHER] IV (17:21)
[2016-12-04 17:36] LABS: DIGOXIN < 0.06 ng/ml (0.8-2.0)
[2016-12-04 18:32] VITALS: BP 97/56
[2016-12-04] MEDS ORDERED: [UNRECOGNIZED DRUG - OTHER] IV (18:45)
[2016-12-04] MEDS ORDERED: RANEXA500 M1 PO (19:08)
[2016-12-04] MEDS ORDERED: ISORDIL10 M1 PO (19:09)
[2016-12-04 20:00] VITALS: BP 99/66
[2016-12-04 22:00] LABS: CKMB 4.2 ng/ml (0.5-3.6)
[2016-12-04 22:07] LABS: TROPONIN I 0.406 ng/ml (<0.045)
[2016-12-05] VITALS (9 sets, daily range): BP systolic 74–95; BP diastolic 40–59
[2016-12-05 04:09] LABS: BASO % 0.7 % (0.0-1.0); EOS # 0.2 10*3/uL (0.0-0.4); EOS % 2.5 % (1.0-4.0); HEMATOCRIT 35.5 % (42.0-52.0); HEMOGLOBIN 12.2 g/dl (14.0-18.0); LYMPH # 1.1 10*3/uL (1.3-4.4); LYMPH % 17.9 % (27.0-41.0); MEAN CELL VOLUME 91.5 fl (80.0-94.0); MEAN CORPUSCULAR HGB 31.4 pg (27.0-31.0); MEAN CORPUSCULAR HGB CONC 34.4 g/dl (33.0-37.0); MEAN PLATELET VOLUME 10.2 fl (9.6-12.3); MONO # 0.6 10*3/uL (0.1-1.0); MONO % 9.8 % (3.0-9.0); NEUT # 4.2 10*3/uL (2.3-7.9); NEUT % 68.8 % (47.0-73.0); PLATELET COUNT AUTOMATED 202 10*3/uL (130-400); RED BLOOD COUNT 3.88 10*6/uL (4.50-5.90); RED CELL DISTRI WIDTH 13.3 % (0-14.5); WHITE BLOOD COUNT 6.1 10*3/uL (4.8-10.8)
[2016-12-05 04:21] LABS: BUN 15 mg/dl (7-24); CARBON DIOXIDE 29 mmol/L (21-32); CHLORIDE 105 mmol/L (98-107); EST GLOM FILT AFRICAN AMERICAN > 60 ml/min; GLUCOSE 99 mg/dL (65-99); POTASSIUM 3.9 mmol/L (3.5-5.1); SODIUM 141 mmol/L (136-145)
[2016-12-05 04:26] LABS: CKMB 4.3 ng/ml (0.5-3.6)
[2016-12-05 04:27] LABS: FREE T4 1.05 ng/dl (0.76-1.46)
[2016-12-05 04:28] LABS: TROPONIN I 0.497 ng/ml (<0.045)
[2016-12-05] MEDS ORDERED: ENOXAPARIN100 MG/1 M SC (14:23)
== END 2016-12-05 22:15 | disposition short-term general hospital (02) | DRG 281 ==
LOC: ED 16:41 → ICCU 18:02 → EDHOLD 18:02 → 4E 18:28 → ICCU 22:39
PROVIDERS: Emergency Medicine; Internal Medicine Hospice and Palliative Medicine
DX: I21.4 Non-ST elevation (NSTEMI) myocardial infarction (principal); I50.22 Chronic systolic (congestive) heart failure; I11.0 Hypertensive heart disease with heart failure; I95.9 Hypotension, unspecified; Z95.5 Presence of coronary angioplasty implant and graft; J44.9 Chronic obstructive pulmonary disease, unspecified; Z87.891 Personal history of nicotine dependence; Z82.49 Family history of ischemic heart disease and other diseases of the circulatory system; D64.9 Anemia, unspecified; E78.5 Hyperlipidemia, unspecified; I25.110 Atherosclerotic heart disease of native coronary artery with unstable angina pectoris; Z95.810 Presence of automatic (implantable) cardiac defibrillator; R79.82 Elevated C-reactive protein (CRP); I25.5 Ischemic cardiomyopathy

== ENCOUNTER → 2017-05-30 | Outpatient (CLI) | payer MEDICARE, MEDICAID ==
[~2017-05-30] MED LIST changes: +ENOXAPARIN100 MG/1 M SC; +LIPITOR80 MG PO; +MAGNESIUM400 MG PO; +RANEXA500 M1 PO; +TOPROL XL25 MG PO; +[UNRECOGNIZED DRUG - OTHER] IV; +[UNRECOGNIZED DRUG - OTHER] IV
[2017-05-30 14:20] LABS: INTERNATIONAL NORM RATIO 3.2 (2.0-3.5)
== END | disposition home or self-care (01) ==
LOC: LAB 13:21
PROVIDERS: Specialist
DX: Z95.811 Presence of heart assist device (principal)

== ENCOUNTER → 2017-06-13 | Outpatient (CLI) | payer MEDICARE, MEDICAID ==
[2017-06-13 09:57] LABS: INTERNATIONAL NORM RATIO 2.3 (2.0-3.5)
== END | disposition home or self-care (01) ==
LOC: LAB 09:05
PROVIDERS: Specialist
DX: Z95.811 Presence of heart assist device (principal)

== ENCOUNTER → 2017-07-10 | Outpatient (CLI) | payer MEDICARE, MEDICAID ==
[2017-07-10 12:55] LABS: INTERNATIONAL NORM RATIO 1.8 (2.0-3.5)
== END | disposition home or self-care (01) ==
LOC: LAB 11:56
PROVIDERS: Specialist
DX: Z95.811 Presence of heart assist device (principal)

== ENCOUNTER → 2017-08-07 | Outpatient (CLI) | payer MEDICARE, MEDICAID ==
[~2017-08-07] MED LIST changes: +AMIODARONE HCL200 MG PO; +DOCUSATE SODIU100 M2 PO; +PROTONIX40 MG PO; +SENNA8.6 MG PO; +WARFARIN SODIUM3 MG PO
[2017-08-07 10:09] LABS: INTERNATIONAL NORM RATIO 2.2 (2.0-3.5)
== END | disposition home or self-care (01) ==
LOC: LAB 09:00
PROVIDERS: Specialist
DX: Z48.812 Encounter for surgical aftercare following surgery on the circulatory system (principal); Z95.811 Presence of heart assist device

== ENCOUNTER 2017-08-09 00:22 | Emergency (ER) | payer MEDICARE, MEDICAID ==
[~2017-08-09] VITALS: Ht 190.5 cm; Wt 100.7 kg
[~2017-08-09 00:22] MED LIST changes: -AMIODARONE HCL200 MG PO; -DOCUSATE SODIU100 M2 PO; -PROTONIX40 MG PO; -SENNA8.6 MG PO; -WARFARIN SODIUM3 MG PO
[2017-08-09] MEDS ORDERED: AMIODARONE HCL200 MG PO (00:36)
[2017-08-09] MEDS ORDERED: WARFARIN SODIUM3 MG PO (00:37)
[2017-08-09] MEDS ORDERED: SENNA8.6 MG PO (00:37)
[2017-08-09] MEDS ORDERED: PROTONIX40 MG PO (00:38)
[2017-08-09] MEDS ORDERED: DOCUSATE SODIU100 M2 PO (00:38)
[2017-08-09 01:11] LABS: BASO % 0.5 % (0.0-1.0); EOS # 0.1 10*3/uL (0.0-0.4); EOS % 1.3 % (1.0-4.0); HEMATOCRIT 38.8 % (42.0-52.0); HEMOGLOBIN 12.1 g/dl (14.0-18.0); LYMPH # 0.7 10*3/uL (1.3-4.4); LYMPH % 10.6 % (27.0-41.0); MEAN CELL VOLUME 85.8 fl (80.0-94.0); MEAN CORPUSCULAR HGB 26.8 pg (27.0-31.0); MEAN CORPUSCULAR HGB CONC 31.2 g/dl (33.0-37.0); MEAN PLATELET VOLUME 11.6 fl (9.6-12.3); MONO # 0.5 10*3/uL (0.1-1.0); MONO % 7.1 % (3.0-9.0); NEUT # 5.1 10*3/uL (2.3-7.9); NEUT % 80.2 % (47.0-73.0); PLATELET COUNT AUTOMATED 145 10*3/uL (130-400); RED BLOOD COUNT 4.52 10*6/uL (4.50-5.90); RED CELL DISTRI WIDTH 15.9 % (0-14.5); WHITE BLOOD COUNT 6.4 10*3/uL (4.8-10.8)
[2017-08-09 01:23] LABS: INTERNATIONAL NORM RATIO 2.7 (2.0-3.5)
[2017-08-09 01:30] LABS: ALBUMIN 3.8 gm/dl (3.1-4.5); ALKALINE PHOSPHATASE 111 U/L (45-117); BUN 12 mg/dl (7-24); CHLORIDE 100 mmol/L (98-107); CREATININE 1.24 mg/dL (0.70-1.30); POTASSIUM 3.7 mmol/L (3.5-5.1); SGOT/AST 57 IU/L (3-35); SGPT/ALT 68 U/L (12-78); SODIUM 136 mmol/L (136-145); TOTAL PROTEIN 8.3 gm/dL (6.4-8.2); TROPONIN I 0.039 ng/ml (<0.045)
[2017-08-09] MEDS ORDERED: ZITHROMAX250 MG PO (02:53)
[2017-08-09] MEDS ORDERED: TAMIFLU45 MG PO (02:53)
[2017-08-09 06:18] LABS: BILIRUBIN 1+ (NEGATIVE); BLOOD NEGATIVE (NEGATIVE); CLARITY CLEAR (CLEAR); COLOR YELLOW (YELLOW); GLUCOSE NEGATIVE (NEGATIVE); KETONE TRACE (NEGATIVE); LEUKO ESTERASE NEGATIVE (NEGATIVE); NITRITE NEGATIVE (NEGATIVE); SPECIFIC GRAVITY >= 1.030 (1.005-1.030)
[2017-08-09 06:36] LABS: EPITHELIAL CELLS 0-2; MUCOUS 2+; RBC 0-2 rbc/hpf (0-2)
== END 2017-08-09 09:27 | disposition short-term general hospital (02) ==
LOC: ED 00:22
PROVIDERS: Emergency Medicine Emergency Medical Services
DX: J09.X2 Influenza due to identified novel influenza A virus with other respiratory manifestations (principal); J44.1 Chronic obstructive pulmonary disease with (acute) exacerbation; I25.10 Atherosclerotic heart disease of native coronary artery without angina pectoris; I50.9 Heart failure, unspecified; I25.2 Old myocardial infarction; E78.5 Hyperlipidemia, unspecified; Z98.890 Other specified postprocedural states; Z87.891 Personal history of nicotine dependence; Z98.42 Cataract extraction status, left eye; Z95.811 Presence of heart assist device; Z79.01 Long term (current) use of anticoagulants; Z79.899 Other long term (current) drug therapy; Z79.82 Long term (current) use of aspirin

== ENCOUNTER → 2018-06-30 | Outpatient (CLI) | payer MEDICARE, MEDICAID ==
[~2018-06-30] MED LIST changes: +AMIODARONE HCL200 MG PO; +DOCUSATE SODIU100 M2 PO; +PROTONIX40 MG PO; +SENNA8.6 MG PO; +TAMIFLU45 MG PO; +WARFARIN SODIUM3 MG PO; +ZITHROMAX250 MG PO
[2018-06-30 10:57] LABS: BASO # 0.1 10*3/uL (0.0-0.1); BASO % 0.8 % (0.0-1.0); EOS # 0.1 10*3/uL (0.0-0.4); EOS % 0.9 % (1.0-4.0); HEMATOCRIT 42.4 % (42.0-52.0); HEMOGLOBIN 13.7 g/dl (14.0-18.0); LYMPH # 1.2 10*3/uL (1.3-4.4); LYMPH % 15.3 % (27.0-41.0); MEAN CELL VOLUME 90.8 fl (80.0-94.0); MEAN CORPUSCULAR HGB 29.3 pg (27.0-31.0); MEAN CORPUSCULAR HGB CONC 32.3 g/dl (33.0-37.0); MEAN PLATELET VOLUME 10.6 fl (9.6-12.3); MONO # 0.6 10*3/uL (0.1-1.0); MONO % 8.1 % (3.0-9.0); NEUT # 5.7 10*3/uL (2.3-7.9); NEUT % 74.6 % (47.0-73.0); PLATELET COUNT AUTOMATED 167 10*3/uL (130-400); RED BLOOD COUNT 4.67 10*6/uL (4.50-5.90); RED CELL DISTRI WIDTH 17.3 % (0-14.5); WHITE BLOOD COUNT 7.7 10*3/uL (4.8-10.8)
[2018-06-30 11:20] LABS: BUN 15 mg/dl (7-24); CHLORIDE 103 mmol/L (98-107); CREATININE 1.26 mg/dL (0.70-1.30); POTASSIUM 4.5 mmol/L (3.5-5.1); SODIUM 139 mmol/L (136-145)
[2018-06-30 11:30] LABS: INTERNATIONAL NORM RATIO 2.1 (2.0-3.5)
== END | disposition home or self-care (01) ==
LOC: LAB 10:20
PROVIDERS: Internal Medicine Clinical Cardiac Electrophysiology
DX: Z45.02 Encounter for adjustment and management of automatic implantable cardiac defibrillator (principal); I48.91 Unspecified atrial fibrillation; I25.5 Ischemic cardiomyopathy

== ENCOUNTER → 2018-07-05 | Outpatient (CLI) | payer MEDICARE, MEDICAID ==
[2018-07-05 10:33] LABS: INTERNATIONAL NORM RATIO 2.3 (2.0-3.5)
== END | disposition home or self-care (01) ==
LOC: LAB 10:03
DX: I48.91 Unspecified atrial fibrillation (principal)

== ENCOUNTER → 2018-07-31 | Outpatient (CLI) | payer MEDICARE, MEDICAID ==
[2018-07-31 11:35] LABS: INTERNATIONAL NORM RATIO 1.6 (2.0-3.5)
== END | disposition home or self-care (01) ==
LOC: LAB 10:27
PROVIDERS: Surgery
DX: I50.43 Acute on chronic combined systolic (congestive) and diastolic (congestive) heart failure (principal); Z95.811 Presence of heart assist device; Z79.01 Long term (current) use of anticoagulants

== ENCOUNTER 2018-09-17 03:24 | Emergency (ER) | payer MEDICARE, MEDICAID ==
[~2018-09-17] VITALS: Ht 190.5 cm; Wt 99.8 kg
--- NOTE | ~2018-09-17 | EKG ---
[place], [place] ELECTROCARDIOGRAM REPORT NAME: PAU PIMENTEL UNIT #: [id number] ROOM: DOCTOR: EPIPHANY DRAFT REPORT BIRTHDATE: [birth year] [facility] Test Date: 2018-09-17 Test Time: 03:41:20 Pat Name: PAU PIMENTEL Department: Room: Gender: M [employer]: : 1955 Requested By: LÁZARO MCDONALD Order Number: [id number] Reading MD: Usha Murry MD Measurements Intervals [place] Rate: 78 P: VT: QRS: -85 QRSD: 180 T: 106 QT: QTc: 0 Interpretive Statements Poor quality data, interpretation may be affected Atrial fibrillation Nonspecific IVCD with LAD Abnormal T, consider ischemia, lateral leads Artifact in lead(s) I,II,III,aVR,aVL,aVF,V1,V2,V3,V4,V5,V6 and baseline wander in lead(s) V4 No previous ECG available for comparison Electronically Signed On 09-18-2018 2:16:46 PST by Usha Murry MD CM:EKGRPT:ELECTROCARDIOGRAM REPORT [id number] LÁZARO ACEVEDO DRAFT REPORT LÁZARO MCDONALD DO
[2018-09-17 03:55] LABS: BASO # 0.1 10*3/uL (0.0-0.1); EOS # 0.1 10*3/uL (0.0-0.4); EOS % 1.3 % (1.0-4.0); HEMATOCRIT 42.2 % (42.0-52.0); HEMOGLOBIN 13.8 g/dl (14.0-18.0); LYMPH # 1.1 10*3/uL (1.3-4.4); LYMPH % 15.9 % (27.0-41.0); MEAN CELL VOLUME 96.1 fl (80.0-94.0); MEAN CORPUSCULAR HGB 31.4 pg (27.0-31.0); MEAN CORPUSCULAR HGB CONC 32.7 g/dl (33.0-37.0); MEAN PLATELET VOLUME 11.6 fl (9.6-12.3); MONO # 0.5 10*3/uL (0.1-1.0); MONO % 7.4 % (3.0-9.0); NEUT # 5.1 10*3/uL (2.3-7.9); NEUT % 74.1 % (47.0-73.0); PLATELET COUNT AUTOMATED 175 10*3/uL (130-400); RED BLOOD COUNT 4.39 10*6/uL (4.50-5.90); RED CELL DISTRI WIDTH 15.1 % (0-14.5); WHITE BLOOD COUNT 6.9 10*3/uL (4.8-10.8)
[2018-09-17 04:17] LABS: ALBUMIN 3.9 gm/dl (3.1-4.5); CREATININE 1.61 mg/dL (0.70-1.30); POTASSIUM 4.3 mmol/L (3.5-5.1); TOTAL PROTEIN 8.2 gm/dL (6.4-8.2); TROPONIN I 0.036 ng/ml (<0.045)
== END 2018-09-17 10:05 | disposition short-term general hospital (02) ==
LOC: ED 03:24
PROVIDERS: Emergency Medicine
DX: T82.198A Other mechanical complication of other cardiac electronic device, initial encounter (principal); I25.10 Atherosclerotic heart disease of native coronary artery without angina pectoris; I50.9 Heart failure, unspecified; J44.9 Chronic obstructive pulmonary disease, unspecified; I25.2 Old myocardial infarction; E78.5 Hyperlipidemia, unspecified; Z79.2 Long term (current) use of antibiotics; Z79.899 Other long term (current) drug therapy; Z79.82 Long term (current) use of aspirin; Z79.01 Long term (current) use of anticoagulants; Z95.811 Presence of heart assist device; Z87.891 Personal history of nicotine dependence

== ENCOUNTER → 2018-12-09 | Outpatient (CLI) | payer MEDICARE, MEDICAID ==
[2018-12-09 10:16] LABS: BASO # 0.1 10*3/uL (0.0-0.1); BASO % 0.9 % (0.0-1.0); EOS # 0.1 10*3/uL (0.0-0.4); EOS % 1.6 % (1.0-4.0); HEMATOCRIT 39.2 % (42.0-52.0); HEMOGLOBIN 12.4 g/dl (14.0-18.0); LYMPH # 0.8 10*3/uL (1.3-4.4); LYMPH % 11.7 % (27.0-41.0); MEAN CORPUSCULAR HGB 29.1 pg (27.0-31.0); MEAN CORPUSCULAR HGB CONC 31.6 g/dl (33.0-37.0); MEAN PLATELET VOLUME 11.7 fl (9.6-12.3); MONO # 0.7 10*3/uL (0.1-1.0); MONO % 10.2 % (3.0-9.0); NEUT % 75.2 % (47.0-73.0); PLATELET COUNT AUTOMATED 228 10*3/uL (130-400); RED BLOOD COUNT 4.26 10*6/uL (4.50-5.90); WHITE BLOOD COUNT 6.7 10*3/uL (4.8-10.8)
[2018-12-09 10:40] LABS: ALBUMIN 3.8 gm/dl (3.1-4.5); BILIRUBIN, DIRECT 0.2 mg/dL (0.0-0.2); CREATININE 1.86 mg/dL (0.70-1.30); POTASSIUM 4.4 mmol/L (3.5-5.1)
== END | disposition home or self-care (01) ==
LOC: LAB 09:28
PROVIDERS: Physician Assistant Medical
DX: I50.1 Left ventricular failure, unspecified (principal)

== ENCOUNTER → 2019-06-18 | Outpatient (CLI) | payer MEDICARE, MEDICAID ==
[~2019-06-18] MED LIST changes: +CELLCEPT500 MG PO; +MIRALAX17 GM PO; +Magnesium Oxid400 MG PO; +NYST SUSP PO; +PEPCID20 MG PO; +PRAVASTATIN SOD10 MG PO; +PROAIR HFA8.5 GM INH; +SEPTDS PO; +SPIRIVA18 MCG PO; +TACROLIMUS1 M1 PO; +VALGANCICLOVIR450 MG PO
[2019-06-18 10:09] LABS: HEMATOCRIT 41.1 % (42.0-52.0); MEAN CELL VOLUME 94.9 fl (80.0-94.0); MEAN CORPUSCULAR HGB CONC 31.6 g/dl (33.0-37.0); PLATELET COUNT AUTOMATED 168 10*3/uL (130-400); RED BLOOD COUNT 4.33 10*6/uL (4.50-5.90); RED CELL DISTRI WIDTH 14.5 % (0-14.5); WHITE BLOOD COUNT 7.5 10*3/uL (4.8-10.8)
[2019-06-18 10:26] LABS: ALBUMIN 3.8 gm/dl (3.1-4.5); CREATININE 1.48 mg/dL (0.70-1.30); POTASSIUM 4.4 mmol/L (3.5-5.1)
[2019-06-18 10:59] LABS: BASOPHILS 2 % (0-1); PLATELET SUFFICIENCY NORMAL (NORMAL); TOTAL CELLS COUNTED 100 #CELLS
[2019-06-20 22:06] LABS: CMV QNT Negative (Negative)
== END | disposition home or self-care (01) ==
LOC: LAB 09:31
PROVIDERS: Specialist
DX: Z94.1 Heart transplant status (principal); Z79.899 Other long term (current) drug therapy

== ENCOUNTER → 2019-06-22 | Outpatient (CLI) | payer MEDICARE, MEDICAID ==
[2019-06-22 09:53] LABS: HEMATOCRIT 42.9 % (42.0-52.0); HEMOGLOBIN 13.8 g/dl (14.0-18.0); MEAN CELL VOLUME 95.1 fl (80.0-94.0); MEAN CORPUSCULAR HGB 30.6 pg (27.0-31.0); MEAN CORPUSCULAR HGB CONC 32.2 g/dl (33.0-37.0); MEAN PLATELET VOLUME 11.3 fl (9.6-12.3); PLATELET COUNT AUTOMATED 152 10*3/uL (130-400); RED BLOOD COUNT 4.51 10*6/uL (4.50-5.90)
[2019-06-22 10:15] LABS: BASOPHILS 1 % (0-1); PLATELET SUFFICIENCY NORMAL (NORMAL); TOTAL CELLS COUNTED 100 #CELLS
[2019-06-22 10:35] LABS: ALBUMIN 3.9 gm/dl (3.1-4.5); CREATININE 1.75 mg/dL (0.70-1.30); POTASSIUM 4.6 mmol/L (3.5-5.1)
[2019-06-22 10:37] LABS: TOTAL PROTEIN 7.3 gm/dL (6.4-8.2)
[2019-06-25 00:06] LABS: CMV QNT Negative (Negative)
== END | disposition home or self-care (01) ==
LOC: LAB 09:25
PROVIDERS: Specialist
DX: Z79.899 Other long term (current) drug therapy (principal); Z94.1 Heart transplant status

== ENCOUNTER → 2019-07-06 | Outpatient (CLI) | payer MEDICARE, MEDICAID ==
[2019-07-06 10:24] LABS: HEMATOCRIT 40.4 % (42.0-52.0); HEMOGLOBIN 13.2 g/dl (14.0-18.0); MEAN CELL VOLUME 93.1 fl (80.0-94.0); MEAN CORPUSCULAR HGB 30.4 pg (27.0-31.0); MEAN CORPUSCULAR HGB CONC 32.7 g/dl (33.0-37.0); PLATELET COUNT AUTOMATED 148 10*3/uL (130-400); RED BLOOD COUNT 4.34 10*6/uL (4.50-5.90); RED CELL DISTRI WIDTH 13.9 % (0-14.5); WHITE BLOOD COUNT 7.6 10*3/uL (4.8-10.8)
[2019-07-06 10:49] LABS: CREATININE 1.53 mg/dL (0.70-1.30); TOTAL PROTEIN 7.4 gm/dL (6.4-8.2)
[2019-07-06 11:12] LABS: OVALOCYTES FEW; PLATELET SUFFICIENCY NORMAL (NORMAL); TOTAL CELLS COUNTED 100 #CELLS
[2019-07-09 00:06] LABS: CMV QNT Negative (Negative)
== END | disposition home or self-care (01) ==
LOC: LAB 09:51
PROVIDERS: Specialist
DX: Z94.1 Heart transplant status (principal); Z79.899 Other long term (current) drug therapy

== ENCOUNTER → 2019-07-13 | Outpatient (CLI) | payer MEDICARE, MEDICAID ==
[2019-07-13 10:19] LABS: HEMATOCRIT 39.3 % (42.0-52.0); HEMOGLOBIN 12.8 g/dl (14.0-18.0); MEAN CELL VOLUME 94.5 fl (80.0-94.0); MEAN CORPUSCULAR HGB 30.8 pg (27.0-31.0); MEAN CORPUSCULAR HGB CONC 32.6 g/dl (33.0-37.0); MEAN PLATELET VOLUME 11.3 fl (9.6-12.3); PLATELET COUNT AUTOMATED 161 10*3/uL (130-400); RED BLOOD COUNT 4.16 10*6/uL (4.50-5.90); RED CELL DISTRI WIDTH 13.6 % (0-14.5)
[2019-07-13 10:43] LABS: TOTAL CELLS COUNTED 100 #CELLS
[2019-07-13 10:44] LABS: PLATELET SUFFICIENCY NORMAL (NORMAL)
[2019-07-13 10:46] LABS: ALBUMIN 3.9 gm/dl (3.1-4.5); CREATININE 1.7 mg/dL (0.70-1.30); POTASSIUM 5.6 mmol/L (3.5-5.1); TOTAL PROTEIN 7.2 gm/dL (6.4-8.2)
[2019-07-16 00:09] LABS: CMV QNT Negative (Negative)
== END | disposition home or self-care (01) ==
LOC: LAB 09:47
PROVIDERS: Specialist
DX: Z79.899 Other long term (current) drug therapy (principal); Z94.1 Heart transplant status

== ENCOUNTER → 2019-07-16 | Outpatient (CLI) | payer MEDICARE, MEDICAID ==
[2019-07-16 09:27] LABS: HEMATOCRIT 40.1 % (42.0-52.0); HEMOGLOBIN 13.2 g/dl (14.0-18.0); MEAN CELL VOLUME 93.7 fl (80.0-94.0); MEAN CORPUSCULAR HGB 30.8 pg (27.0-31.0); MEAN CORPUSCULAR HGB CONC 32.9 g/dl (33.0-37.0); MEAN PLATELET VOLUME 10.7 fl (9.6-12.3); PLATELET COUNT AUTOMATED 154 10*3/uL (130-400); RED BLOOD COUNT 4.28 10*6/uL (4.50-5.90); RED CELL DISTRI WIDTH 13.8 % (0-14.5); WHITE BLOOD COUNT 7.5 10*3/uL (4.8-10.8)
[2019-07-16 09:46] LABS: POTASSIUM 4.8 mmol/L (3.5-5.1)
[2019-07-16 09:55] LABS: ALBUMIN 4.1 gm/dl (3.1-4.5); CREATININE 1.7 mg/dL (0.70-1.30); TOTAL PROTEIN 7.5 gm/dL (6.4-8.2)
[2019-07-16 09:56] LABS: ATYPICAL LYMPHS 2 % (0-0); BASOPHILS 1 % (0-1); TOTAL CELLS COUNTED 100 #CELLS
[2019-07-16 10:03] LABS: OVALOCYTES FEW; PLATELET SUFFICIENCY NORMAL (NORMAL)
[2019-07-18 17:06] LABS: CMV QNT Negative (Negative)
== END | disposition home or self-care (01) ==
LOC: LAB 09:03
PROVIDERS: Specialist
DX: Z79.899 Other long term (current) drug therapy (principal); Z94.1 Heart transplant status

== ENCOUNTER → 2019-07-20 | Outpatient (CLI) | payer MEDICARE, MEDICAID ==
[2019-07-20 10:47] LABS: HEMATOCRIT 39.2 % (42.0-52.0); HEMOGLOBIN 12.8 g/dl (14.0-18.0); MEAN CORPUSCULAR HGB 30.7 pg (27.0-31.0); MEAN CORPUSCULAR HGB CONC 32.7 g/dl (33.0-37.0); MEAN PLATELET VOLUME 12.1 fl (9.6-12.3); PLATELET COUNT AUTOMATED 165 10*3/uL (130-400); RED BLOOD COUNT 4.17 10*6/uL (4.50-5.90); RED CELL DISTRI WIDTH 13.6 % (0-14.5); WHITE BLOOD COUNT 7.2 10*3/uL (4.8-10.8)
[2019-07-20 11:13] LABS: ALBUMIN 4.2 gm/dl (3.1-4.5); POTASSIUM 4.6 mmol/L (3.5-5.1)
[2019-07-20 11:18] LABS: BASOPHILS 1 % (0-1); CREATININE 1.89 mg/dL (0.70-1.30); TOTAL CELLS COUNTED 100 #CELLS; TOTAL PROTEIN 7.3 gm/dL (6.4-8.2)
[2019-07-20 11:19] LABS: PLATELET SUFFICIENCY NORMAL (NORMAL)
[2019-07-24 00:05] LABS: CMV QNT Negative (Negative)
== END | disposition home or self-care (01) ==
LOC: LAB 09:43
PROVIDERS: Specialist
DX: Z94.1 Heart transplant status (principal); Z79.899 Other long term (current) drug therapy

== ENCOUNTER → 2019-07-27 | Outpatient (CLI) | payer MEDICARE, MEDICAID ==
[2019-07-27 09:31] LABS: HEMATOCRIT 40.4 % (42.0-52.0); HEMOGLOBIN 13.1 g/dl (14.0-18.0); MEAN CELL VOLUME 95.5 fl (80.0-94.0); MEAN CORPUSCULAR HGB CONC 32.4 g/dl (33.0-37.0); MEAN PLATELET VOLUME 11.6 fl (9.6-12.3); PLATELET COUNT AUTOMATED 167 10*3/uL (130-400); RED BLOOD COUNT 4.23 10*6/uL (4.50-5.90); RED CELL DISTRI WIDTH 13.7 % (0-14.5); WHITE BLOOD COUNT 7.9 10*3/uL (4.8-10.8)
[2019-07-27 10:07] LABS: ALBUMIN 4.1 gm/dl (3.1-4.5); CREATININE 1.5 mg/dL (0.70-1.30); POTASSIUM 4.8 mmol/L (3.5-5.1)
[2019-07-27 10:08] LABS: TOTAL PROTEIN 7.4 gm/dL (6.4-8.2)
[2019-07-27 10:36] LABS: BASOPHILS 1 % (0-1); PLATELET SUFFICIENCY NORMAL (NORMAL); TOTAL CELLS COUNTED 100 #CELLS
[2019-07-31 00:04] LABS: CMV QNT Negative (Negative)
== END | disposition home or self-care (01) ==
LOC: LAB 08:44
PROVIDERS: Specialist
DX: Z94.1 Heart transplant status (principal); Z79.899 Other long term (current) drug therapy

== ENCOUNTER → 2019-08-03 | Outpatient (CLI) | payer MEDICARE, MEDICAID ==
[2019-08-03 09:10] LABS: HEMATOCRIT 38.7 % (42.0-52.0); HEMOGLOBIN 12.9 g/dl (14.0-18.0); MEAN CELL VOLUME 93.3 fl (80.0-94.0); MEAN CORPUSCULAR HGB 31.1 pg (27.0-31.0); MEAN CORPUSCULAR HGB CONC 33.3 g/dl (33.0-37.0); MEAN PLATELET VOLUME 11.4 fl (9.6-12.3); PLATELET COUNT AUTOMATED 155 10*3/uL (130-400); RED BLOOD COUNT 4.15 10*6/uL (4.50-5.90); RED CELL DISTRI WIDTH 13.6 % (0-14.5); WHITE BLOOD COUNT 7.6 10*3/uL (4.8-10.8)
[2019-08-03 09:30] LABS: BASOPHILS 3 % (0-1); TOTAL CELLS COUNTED 100 #CELLS
[2019-08-03 09:31] LABS: OVALOCYTES FEW; PLATELET SUFFICIENCY NORMAL (NORMAL)
[2019-08-03 09:37] LABS: ALBUMIN 4.1 gm/dl (3.1-4.5); CREATININE 1.54 mg/dL (0.70-1.30); POTASSIUM 4.4 mmol/L (3.5-5.1); TOTAL PROTEIN 7.2 gm/dL (6.4-8.2)
[2019-08-06 00:07] LABS: CMV QNT Negative (Negative)
== END | disposition home or self-care (01) ==
LOC: LAB 08:39
PROVIDERS: Specialist
DX: Z79.899 Other long term (current) drug therapy (principal); Z94.1 Heart transplant status

== ENCOUNTER → 2019-08-18 | Outpatient (CLI) | payer MEDICARE, MEDICAID ==
[2019-08-18 10:09] LABS: HEMATOCRIT 39.5 % (42.0-52.0); MEAN CELL VOLUME 94.3 fl (80.0-94.0); MEAN CORPUSCULAR HGB CONC 32.9 g/dl (33.0-37.0); MEAN PLATELET VOLUME 11.8 fl (9.6-12.3); PLATELET COUNT AUTOMATED 162 10*3/uL (130-400); RED BLOOD COUNT 4.19 10*6/uL (4.50-5.90); RED CELL DISTRI WIDTH 13.4 % (0-14.5); WHITE BLOOD COUNT 8.3 10*3/uL (4.8-10.8)
[2019-08-18 10:39] LABS: ALBUMIN 4.1 gm/dl (3.1-4.5); CREATININE 1.47 mg/dL (0.70-1.30); POTASSIUM 4.6 mmol/L (3.5-5.1); TOTAL PROTEIN 7.4 gm/dL (6.4-8.2)
[2019-08-18 10:44] LABS: BASOPHILS 1 % (0-1); OVALOCYTES MODERATE; PLATELET SUFFICIENCY NORMAL (NORMAL); TOTAL CELLS COUNTED 100 #CELLS
[2019-08-21 00:09] LABS: CMV QNT Negative (Negative)
== END | disposition home or self-care (01) ==
LOC: LAB 09:17
PROVIDERS: Specialist
DX: Z79.899 Other long term (current) drug therapy (principal); Z94.1 Heart transplant status

== ENCOUNTER → 2019-08-24 | Outpatient (CLI) | payer MEDICARE, MEDICAID ==
[2019-08-24 10:24] LABS: HEMATOCRIT 38.4 % (42.0-52.0); HEMOGLOBIN 12.6 g/dl (14.0-18.0); MEAN CELL VOLUME 93.4 fl (80.0-94.0); MEAN CORPUSCULAR HGB 30.7 pg (27.0-31.0); MEAN CORPUSCULAR HGB CONC 32.8 g/dl (33.0-37.0); MEAN PLATELET VOLUME 11.4 fl (9.6-12.3); PLATELET COUNT AUTOMATED 150 10*3/uL (130-400); RED BLOOD COUNT 4.11 10*6/uL (4.50-5.90); RED CELL DISTRI WIDTH 13.5 % (0-14.5); WHITE BLOOD COUNT 7.3 10*3/uL (4.8-10.8)
[2019-08-24 10:37] LABS: ALBUMIN 3.9 gm/dl (3.1-4.5); ALKALINE PHOSPHATASE 97 U/L (45-117); BUN 18 mg/dl (7-24); CHLORIDE 108 mmol/L (98-107); GAMMA GLUTAMYL TRANSPEPTIDASE 46 U/L (15-85); POTASSIUM 4.4 mmol/L (3.5-5.1); SGOT/AST 11 IU/L (3-35); SGPT/ALT 20 U/L (12-78); SODIUM 141 mmol/L (136-145); TOTAL PROTEIN 7.3 gm/dL (6.4-8.2)
[2019-08-24 11:14] LABS: BASOPHILS 2 % (0-1); OVALOCYTES FEW; PLATELET SUFFICIENCY NORMAL (NORMAL); TOTAL CELLS COUNTED 100 #CELLS
[2019-08-27 00:09] LABS: CMV QNT Negative (Negative)
== END | disposition home or self-care (01) ==
LOC: LAB 09:45
PROVIDERS: Specialist
DX: Z79.899 Other long term (current) drug therapy (principal); Z94.1 Heart transplant status

== ENCOUNTER → 2019-09-03 | Outpatient (CLI) | payer MEDICARE, MEDICAID ==
[2019-09-03 11:04] LABS: HEMATOCRIT 37.5 % (42.0-52.0); HEMOGLOBIN 12.5 g/dl (14.0-18.0); MEAN CELL VOLUME 94.5 fl (80.0-94.0); MEAN CORPUSCULAR HGB 31.5 pg (27.0-31.0); MEAN CORPUSCULAR HGB CONC 33.3 g/dl (33.0-37.0); MEAN PLATELET VOLUME 11.5 fl (9.6-12.3); PLATELET COUNT AUTOMATED 162 10*3/uL (130-400); RED BLOOD COUNT 3.97 10*6/uL (4.50-5.90); RED CELL DISTRI WIDTH 13.4 % (0-14.5); WHITE BLOOD COUNT 6.5 10*3/uL (4.8-10.8)
[2019-09-03 11:33] LABS: ALBUMIN 4.1 gm/dl (3.1-4.5); BUN 24 mg/dl (7-24); CHLORIDE 108 mmol/L (98-107); GAMMA GLUTAMYL TRANSPEPTIDASE 51 U/L (15-85); POTASSIUM 4.4 mmol/L (3.5-5.1); SGOT/AST 14 IU/L (3-35); SGPT/ALT 28 U/L (12-78); SODIUM 139 mmol/L (136-145)
[2019-09-03 11:35] LABS: ALKALINE PHOSPHATASE 101 U/L (45-117); TOTAL PROTEIN 7.3 gm/dL (6.4-8.2)
[2019-09-03 12:36] LABS: BASOPHILS 3 % (0-1); PLATELET SUFFICIENCY NORMAL (NORMAL); TOTAL CELLS COUNTED 100 #CELLS
[2019-09-08 05:04] LABS: CMV QNT Negative (Negative)
== END | disposition home or self-care (01) ==
LOC: LAB 10:27
PROVIDERS: Specialist
DX: Z79.899 Other long term (current) drug therapy (principal); Z94.1 Heart transplant status

== ENCOUNTER → 2019-09-07 | Outpatient (CLI) | payer MEDICARE, MEDICAID ==
[2019-09-07 09:54] LABS: HEMATOCRIT 39.2 % (42.0-52.0); HEMOGLOBIN 12.9 g/dl (14.0-18.0); MEAN CELL VOLUME 95.4 fl (80.0-94.0); MEAN CORPUSCULAR HGB 31.4 pg (27.0-31.0); MEAN CORPUSCULAR HGB CONC 32.9 g/dl (33.0-37.0); MEAN PLATELET VOLUME 10.9 fl (9.6-12.3); PLATELET COUNT AUTOMATED 164 10*3/uL (130-400); RED BLOOD COUNT 4.11 10*6/uL (4.50-5.90); RED CELL DISTRI WIDTH 13.4 % (0-14.5); WHITE BLOOD COUNT 6.9 10*3/uL (4.8-10.8)
[2019-09-07 10:20] LABS: OVALOCYTES FEW; PLATELET SUFFICIENCY NORMAL (NORMAL); TOTAL CELLS COUNTED 100 #CELLS
[2019-09-07 10:36] LABS: ALBUMIN 4.1 gm/dl (3.1-4.5); BUN 20 mg/dl (7-24); CHLORIDE 108 mmol/L (98-107); GAMMA GLUTAMYL TRANSPEPTIDASE 55 U/L (15-85); POTASSIUM 4.8 mmol/L (3.5-5.1); SODIUM 140 mmol/L (136-145)
[2019-09-07 10:40] LABS: ALKALINE PHOSPHATASE 105 U/L (45-117); CREATININE 1.44 mg/dL (0.70-1.30); SGOT/AST 13 IU/L (3-35); SGPT/ALT 25 U/L (12-78); TOTAL PROTEIN 7.3 gm/dL (6.4-8.2)
[2019-09-10 00:07] LABS: CMV QNT Negative (Negative)
== END | disposition home or self-care (01) ==
LOC: LAB 09:30
PROVIDERS: Specialist
DX: Z79.899 Other long term (current) drug therapy (principal); Z94.1 Heart transplant status

== ENCOUNTER → 2019-09-14 | Outpatient (CLI) | payer MEDICARE, MEDICAID ==
[2019-09-14 09:55] LABS: HEMATOCRIT 37.9 % (42.0-52.0); HEMOGLOBIN 12.3 g/dl (14.0-18.0); MEAN CELL VOLUME 93.6 fl (80.0-94.0); MEAN CORPUSCULAR HGB 30.4 pg (27.0-31.0); MEAN CORPUSCULAR HGB CONC 32.5 g/dl (33.0-37.0); MEAN PLATELET VOLUME 11.7 fl (9.6-12.3); PLATELET COUNT AUTOMATED 160 10*3/uL (130-400); RED BLOOD COUNT 4.05 10*6/uL (4.50-5.90); RED CELL DISTRI WIDTH 13.2 % (0-14.5); WHITE BLOOD COUNT 4.2 10*3/uL (4.8-10.8)
[2019-09-14 10:13] LABS: CREATININE 1.53 mg/dL (0.70-1.30); POTASSIUM 4.4 mmol/L (3.5-5.1); TOTAL PROTEIN 7.2 gm/dL (6.4-8.2)
[2019-09-14 10:18] LABS: BASOPHILS 2 % (0-1); PLATELET SUFFICIENCY NORMAL (NORMAL); TOTAL CELLS COUNTED 100 #CELLS
[2019-09-17 00:09] LABS: CMV QNT Negative (Negative)
== END | disposition home or self-care (01) ==
LOC: LAB 09:12
PROVIDERS: Specialist
DX: Z79.899 Other long term (current) drug therapy (principal); Z94.1 Heart transplant status

== ENCOUNTER → 2019-09-22 | Outpatient (CLI) | payer MEDICARE, MEDICAID ==
[2019-09-22 10:32] LABS: HEMATOCRIT 38.9 % (42.0-52.0); HEMOGLOBIN 12.8 g/dl (14.0-18.0); MEAN CELL VOLUME 93.5 fl (80.0-94.0); MEAN CORPUSCULAR HGB 30.8 pg (27.0-31.0); MEAN CORPUSCULAR HGB CONC 32.9 g/dl (33.0-37.0); PLATELET COUNT AUTOMATED 177 10*3/uL (130-400); RED BLOOD COUNT 4.16 10*6/uL (4.50-5.90); RED CELL DISTRI WIDTH 13.2 % (0-14.5); WHITE BLOOD COUNT 3.7 10*3/uL (4.8-10.8)
[2019-09-22 10:59] LABS: CREATININE 1.66 mg/dL (0.70-1.30); POTASSIUM 4.7 mmol/L (3.5-5.1); TOTAL PROTEIN 7.4 gm/dL (6.4-8.2)
[2019-09-22 11:17] LABS: BASOPHILS 4 % (0-1); OVALOCYTES FEW; PLATELET SUFFICIENCY NORMAL (NORMAL); TOTAL CELLS COUNTED 100 #CELLS
[2019-09-25 00:08] LABS: CMV QNT Negative (Negative)
== END | disposition home or self-care (01) ==
LOC: LAB 09:54
PROVIDERS: Specialist
DX: Z79.899 Other long term (current) drug therapy (principal); Z94.1 Heart transplant status

== ENCOUNTER → 2019-09-29 | Outpatient (CLI) | payer MEDICARE, MEDICAID ==
[2019-09-29 11:08] LABS: HEMATOCRIT 39.6 % (42.0-52.0); HEMOGLOBIN 13.4 g/dl (14.0-18.0); MEAN CELL VOLUME 92.7 fl (80.0-94.0); MEAN CORPUSCULAR HGB 31.4 pg (27.0-31.0); MEAN CORPUSCULAR HGB CONC 33.8 g/dl (33.0-37.0); MEAN PLATELET VOLUME 10.8 fl (9.6-12.3); PLATELET COUNT AUTOMATED 180 10*3/uL (130-400); RED BLOOD COUNT 4.27 10*6/uL (4.50-5.90); RED CELL DISTRI WIDTH 13.1 % (0-14.5); WHITE BLOOD COUNT 5.6 10*3/uL (4.8-10.8)
[2019-09-29 11:35] LABS: CREATININE 1.78 mg/dL (0.70-1.30); POTASSIUM 4.7 mmol/L (3.5-5.1); TOTAL PROTEIN 7.7 gm/dL (6.4-8.2)
[2019-09-29 11:38] LABS: ATYPICAL LYMPHS 1 % (0-0); PLATELET SUFFICIENCY NORMAL (NORMAL); TOTAL CELLS COUNTED 100 #CELLS
[2019-10-02 00:07] LABS: CMV QNT Negative (Negative)
== END | disposition home or self-care (01) ==
LOC: LAB 10:42
PROVIDERS: Specialist
DX: Z79.899 Other long term (current) drug therapy (principal); Z94.1 Heart transplant status

== ENCOUNTER → 2019-10-05 | Outpatient (CLI) | payer MEDICARE, MEDICAID ==
[2019-10-05 10:15] LABS: HEMATOCRIT 38.3 % (42.0-52.0); HEMOGLOBIN 12.6 g/dl (14.0-18.0); MEAN CELL VOLUME 92.7 fl (80.0-94.0); MEAN CORPUSCULAR HGB 30.5 pg (27.0-31.0); MEAN CORPUSCULAR HGB CONC 32.9 g/dl (33.0-37.0); MEAN PLATELET VOLUME 11.4 fl (9.6-12.3); PLATELET COUNT AUTOMATED 192 10*3/uL (130-400); RED BLOOD COUNT 4.13 10*6/uL (4.50-5.90); RED CELL DISTRI WIDTH 12.8 % (0-14.5); WHITE BLOOD COUNT 8.3 10*3/uL (4.8-10.8)
[2019-10-05 10:37] LABS: BASOPHILS 1 % (0-1); TOTAL CELLS COUNTED 100 #CELLS
[2019-10-05 10:38] LABS: OVALOCYTES FEW; PLATELET SUFFICIENCY NORMAL (NORMAL)
[2019-10-05 11:04] LABS: ALBUMIN 3.9 gm/dl (3.1-4.5); CREATININE 1.5 mg/dL (0.70-1.30); POTASSIUM 4.5 mmol/L (3.5-5.1); TOTAL PROTEIN 7.2 gm/dL (6.4-8.2)
[2019-10-08 00:10] LABS: CMV QNT Negative (Negative)
== END | disposition home or self-care (01) ==
LOC: LAB 09:39
PROVIDERS: Specialist
DX: Z79.899 Other long term (current) drug therapy (principal); Z94.1 Heart transplant status

== ENCOUNTER → 2019-10-12 | Outpatient (CLI) | payer MEDICARE, MEDICAID ==
[2019-10-12 10:15] LABS: HEMATOCRIT 38.2 % (42.0-52.0); HEMOGLOBIN 12.7 g/dl (14.0-18.0); MEAN CORPUSCULAR HGB 30.2 pg (27.0-31.0); MEAN CORPUSCULAR HGB CONC 33.2 g/dl (33.0-37.0); MEAN PLATELET VOLUME 11.7 fl (9.6-12.3); PLATELET COUNT AUTOMATED 185 10*3/uL (130-400); RED CELL DISTRI WIDTH 12.8 % (0-14.5); WHITE BLOOD COUNT 8.7 10*3/uL (4.8-10.8)
[2019-10-12 10:50] LABS: POTASSIUM 4.7 mmol/L (3.5-5.1)
[2019-10-12 10:57] LABS: ALBUMIN 3.8 gm/dl (3.1-4.5); CREATININE 1.64 mg/dL (0.70-1.30); TOTAL PROTEIN 7.3 gm/dL (6.4-8.2)
[2019-10-12 11:04] LABS: ATYPICAL LYMPHS 1 % (0-0); BASOPHILS 2 % (0-1); PLATELET SUFFICIENCY NORMAL (NORMAL); TOTAL CELLS COUNTED 100 #CELLS
== END | disposition home or self-care (01) ==
LOC: LAB 09:18
PROVIDERS: Specialist
DX: Z79.899 Other long term (current) drug therapy (principal); Z94.1 Heart transplant status

== ENCOUNTER → 2019-10-19 | Outpatient (CLI) | payer MEDICARE, MEDICAID ==
[2019-10-19 10:38] LABS: HEMATOCRIT 38.6 % (42.0-52.0); HEMOGLOBIN 12.6 g/dl (14.0-18.0); MEAN CELL VOLUME 92.6 fl (80.0-94.0); MEAN CORPUSCULAR HGB 30.2 pg (27.0-31.0); MEAN CORPUSCULAR HGB CONC 32.6 g/dl (33.0-37.0); MEAN PLATELET VOLUME 11.5 fl (9.6-12.3); PLATELET COUNT AUTOMATED 211 10*3/uL (130-400); RED BLOOD COUNT 4.17 10*6/uL (4.50-5.90); RED CELL DISTRI WIDTH 12.9 % (0-14.5); WHITE BLOOD COUNT 9.3 10*3/uL (4.8-10.8)
[2019-10-19 11:07] LABS: CREATININE 1.83 mg/dL (0.70-1.30); POTASSIUM 4.7 mmol/L (3.5-5.1); TOTAL PROTEIN 7.5 gm/dL (6.4-8.2)
[2019-10-19 11:19] LABS: PLATELET SUFFICIENCY NORMAL (NORMAL); TOTAL CELLS COUNTED 100 #CELLS
[2019-11-01 12:02] LABS: CMV QNT Negative (Negative)
== END | disposition home or self-care (01) ==
LOC: LAB 09:42
PROVIDERS: Specialist
DX: Z79.899 Other long term (current) drug therapy (principal); Z94.1 Heart transplant status

== ENCOUNTER → 2019-10-26 | Outpatient (CLI) | payer MEDICARE, MEDICAID ==
[2019-10-26 10:17] LABS: HEMATOCRIT 38.9 % (42.0-52.0); HEMOGLOBIN 12.7 g/dl (14.0-18.0); MEAN CELL VOLUME 90.3 fl (80.0-94.0); MEAN CORPUSCULAR HGB 29.5 pg (27.0-31.0); MEAN CORPUSCULAR HGB CONC 32.6 g/dl (33.0-37.0); MEAN PLATELET VOLUME 11.4 fl (9.6-12.3); PLATELET COUNT AUTOMATED 205 10*3/uL (130-400); RED BLOOD COUNT 4.31 10*6/uL (4.50-5.90); RED CELL DISTRI WIDTH 12.7 % (0-14.5); WHITE BLOOD COUNT 9.1 10*3/uL (4.8-10.8)
[2019-10-26 10:32] LABS: POTASSIUM 4.6 mmol/L (3.5-5.1)
[2019-10-26 10:56] LABS: ALBUMIN 4.2 gm/dl (3.1-4.5); CREATININE 1.47 mg/dL (0.70-1.30); TOTAL PROTEIN 7.4 gm/dL (6.4-8.2)
[2019-10-26 12:10] LABS: BASOPHILS 1 % (0-1); PLATELET SUFFICIENCY NORMAL (NORMAL); TOTAL CELLS COUNTED 100 #CELLS; TOXIC GRANULATION SLIGHT
== END | disposition home or self-care (01) ==
LOC: LAB 09:10
PROVIDERS: Specialist
DX: Z79.899 Other long term (current) drug therapy (principal); Z94.1 Heart transplant status

== ENCOUNTER → 2019-11-02 | Outpatient (CLI) | payer MEDICARE, MEDICAID ==
[2019-11-02 10:13] LABS: HEMATOCRIT 37.9 % (42.0-52.0); HEMOGLOBIN 12.7 g/dl (14.0-18.0); MEAN CELL VOLUME 90.7 fl (80.0-94.0); MEAN CORPUSCULAR HGB 30.4 pg (27.0-31.0); MEAN CORPUSCULAR HGB CONC 33.5 g/dl (33.0-37.0); MEAN PLATELET VOLUME 10.9 fl (9.6-12.3); PLATELET COUNT AUTOMATED 187 10*3/uL (130-400); RED BLOOD COUNT 4.18 10*6/uL (4.50-5.90); RED CELL DISTRI WIDTH 13.1 % (0-14.5); WHITE BLOOD COUNT 8.8 10*3/uL (4.8-10.8)
[2019-11-02 10:37] LABS: BASOPHILS 1 % (0-1); PLATELET SUFFICIENCY NORMAL (NORMAL); TOTAL CELLS COUNTED 100 #CELLS
[2019-11-02 10:39] LABS: ALBUMIN 3.9 gm/dl (3.1-4.5); CREATININE 1.6 mg/dL (0.70-1.30); POTASSIUM 4.6 mmol/L (3.5-5.1); TOTAL PROTEIN 7.6 gm/dL (6.4-8.2)
== END | disposition home or self-care (01) ==
LOC: LAB 09:38
PROVIDERS: Specialist
DX: Z94.1 Heart transplant status (principal); Z79.899 Other long term (current) drug therapy

== ENCOUNTER → 2020-07-18 | Outpatient (CLI) | payer MEDICARE, MEDICAID ==
[2020-07-18 10:11] LABS: ALBUMIN 4.1 gm/dl (3.1-4.5); ALKALINE PHOSPHATASE 128 U/L (45-117); BUN 21 mg/dl (7-24); CHLORIDE 108 mmol/L (98-107); CHOLESTEROL 168 mg/dL (<200); CREATININE 1.37 mg/dL (0.70-1.30); GAMMA GLUTAMYL TRANSPEPTIDASE 74 U/L (15-85); HDL CHOLESTEROL 36 mg/dl (40-60); LDL CHOLESTEROL 99 mg/dL (9-159); POTASSIUM 4.8 mmol/L (3.5-5.1); SGOT/AST 9 IU/L (3-35); SGPT/ALT 24 U/L (12-78); SODIUM 138 mmol/L (136-145); TOTAL PROTEIN 7.8 gm/dL (6.4-8.2); TRIGLYCERIDES 165 mg/dl (<150); VLDL CHOLESTEROL 33 mg/dL (6-40)
[2020-07-18 10:20] LABS: BASO # 0.1 10*3/uL (0.0-0.1); BASO % 0.8 % (0.0-1.0); EOS # 0.1 10*3/uL (0.0-0.4); EOS % 1.2 % (1.0-4.0); HEMATOCRIT 42.5 % (42.0-52.0); LYMPH % 15.3 % (27.0-41.0); MEAN CELL VOLUME 91.6 fl (80.0-94.0); MEAN CORPUSCULAR HGB 29.3 pg (27.0-31.0); MEAN PLATELET VOLUME 11.7 fl (9.6-12.3); MONO # 0.6 10*3/uL (0.1-1.0); MONO % 8.9 % (3.0-9.0); NEUT # 4.8 10*3/uL (2.3-7.9); NEUT % 73.5 % (47.0-73.0); PLATELET COUNT AUTOMATED 238 10*3/uL (130-400); RED BLOOD COUNT 4.64 10*6/uL (4.50-5.90); RED CELL DISTRI WIDTH 13.3 % (0-14.5); WHITE BLOOD COUNT 6.5 10*3/uL (4.8-10.8)
== END ==
LOC: LAB 09:11
PROVIDERS: ATTEND Specialist
DX: T86.298 Other complications of heart transplant (principal); N18.30 Chronic kidney disease, stage 3 unspecified; Z79.899 Other long term (current) drug therapy; Z94.1 Heart transplant status

== ENCOUNTER → 2020-08-16 | Outpatient (CLI) | payer MEDICARE, MEDICAID | END | disposition home or self-care (01) | LOC: COVID19 14:08 | PROVIDERS: ATTEND Physician Assistant | DX: Z20.822 Contact with and (suspected) exposure to COVID-19 (principal) ==

== ENCOUNTER → 2020-09-01 | Outpatient (CLI) | payer MEDICARE, MEDICAID ==
[2020-09-01 11:22] LABS: BASO # 0.1 10*3/uL (0.0-0.1); BASO % 0.7 % (0.0-1.0); EOS # 0.1 10*3/uL (0.0-0.4); EOS % 1.4 % (1.0-4.0); HEMATOCRIT 42.8 % (42.0-52.0); LYMPH % 14.3 % (27.0-41.0); MEAN CELL VOLUME 91.1 fl (80.0-94.0); MEAN CORPUSCULAR HGB 29.8 pg (27.0-31.0); MEAN CORPUSCULAR HGB CONC 32.7 g/dl (33.0-37.0); MEAN PLATELET VOLUME 11.4 fl (9.6-12.3); MONO # 0.7 10*3/uL (0.1-1.0); MONO % 9.2 % (3.0-9.0); NEUT # 5.4 10*3/uL (2.3-7.9); NEUT % 74.3 % (47.0-73.0); PLATELET COUNT AUTOMATED 221 10*3/uL (130-400); WHITE BLOOD COUNT 7.3 10*3/uL (4.8-10.8)
[2020-09-01 11:46] LABS: ALKALINE PHOSPHATASE 116 U/L (45-117); BUN 17 mg/dl (7-24); CHLORIDE 109 mmol/L (98-107); CHOLESTEROL 191 mg/dL (<200); CREATININE 1.33 mg/dL (0.70-1.30); GAMMA GLUTAMYL TRANSPEPTIDASE 69 U/L (15-85); HDL CHOLESTEROL 39 mg/dl (40-60); LDL CHOLESTEROL 118 mg/dL (9-159); POTASSIUM 4.5 mmol/L (3.5-5.1); SGOT/AST 14 IU/L (3-35); SGPT/ALT 29 U/L (12-78); SODIUM 139 mmol/L (136-145); TOTAL PROTEIN 7.6 gm/dL (6.4-8.2); TRIGLYCERIDES 170 mg/dl (<150); URIC ACID 5.3 mg/dL (3.5-7.2); VLDL CHOLESTEROL 34 mg/dL (6-40)
== END | disposition home or self-care (01) ==
LOC: LAB 10:49
PROVIDERS: ATTEND Specialist
DX: T86.298 Other complications of heart transplant (principal); Z74.1 Need for assistance with personal care; Z79.899 Other long term (current) drug therapy

== ENCOUNTER → 2020-09-22 | Outpatient (CLI) | payer MEDICARE, MEDICAID ==
[2020-09-22 09:57] LABS: BASO # 0.1 10*3/uL (0.0-0.1); BASO % 1.1 % (0.0-1.0); EOS # 0.1 10*3/uL (0.0-0.4); EOS % 1.1 % (1.0-4.0); HEMATOCRIT 43.9 % (42.0-52.0); LYMPH % 13.9 % (27.0-41.0); MEAN CELL VOLUME 92.2 fl (80.0-94.0); MEAN CORPUSCULAR HGB CONC 32.6 g/dl (33.0-37.0); MEAN PLATELET VOLUME 11.4 fl (9.6-12.3); MONO # 0.6 10*3/uL (0.1-1.0); MONO % 7.7 % (3.0-9.0); NEUT # 5.6 10*3/uL (2.3-7.9); NEUT % 75.8 % (47.0-73.0); PLATELET COUNT AUTOMATED 213 10*3/uL (130-400); RED BLOOD COUNT 4.76 10*6/uL (4.50-5.90); RED CELL DISTRI WIDTH 12.9 % (0-14.5); WHITE BLOOD COUNT 7.4 10*3/uL (4.8-10.8)
[2020-09-22 10:27] LABS: ALBUMIN 3.9 gm/dl (3.1-4.5); BUN 14 mg/dl (7-24); CHLORIDE 109 mmol/L (98-107); CHOLESTEROL 181 mg/dL (<200); CREATININE 1.27 mg/dL (0.70-1.30); GAMMA GLUTAMYL TRANSPEPTIDASE 64 U/L (15-85); POTASSIUM 4.8 mmol/L (3.5-5.1); SGOT/AST 9 IU/L (3-35); SGPT/ALT 23 U/L (12-78); SODIUM 137 mmol/L (136-145); TOTAL PROTEIN 7.6 gm/dL (6.4-8.2); URIC ACID 5.5 mg/dL (3.5-7.2)
[2020-09-22 10:28] LABS: ALKALINE PHOSPHATASE 110 U/L (45-117); HDL CHOLESTEROL 37 mg/dl (40-60); LDL CHOLESTEROL 107 mg/dL (9-159); TRIGLYCERIDES 184 mg/dl (<150); VLDL CHOLESTEROL 37 mg/dL (6-40)
== END | disposition home or self-care (01) ==
LOC: LAB 09:30
PROVIDERS: ATTEND Specialist
DX: T86.298 Other complications of heart transplant (principal); Z79.899 Other long term (current) drug therapy; Z94.0 Kidney transplant status

== ENCOUNTER → 2020-12-22 | Outpatient (CLI) | payer MEDICARE, MEDICAID ==
[2020-12-22 10:49] LABS: BASO # 0.1 10*3/uL (0.0-0.1); BASO % 0.9 % (0.0-1.0); EOS # 0.1 10*3/uL (0.0-0.4); LYMPH # 1.2 10*3/uL (1.3-4.4); LYMPH % 15.1 % (27.0-41.0); MEAN CELL VOLUME 89.2 fl (80.0-94.0); MEAN CORPUSCULAR HGB 29.9 pg (27.0-31.0); MEAN CORPUSCULAR HGB CONC 33.5 g/dl (33.0-37.0); MEAN PLATELET VOLUME 11.2 fl (9.6-12.3); MONO # 0.6 10*3/uL (0.1-1.0); NEUT # 5.7 10*3/uL (2.3-7.9); NEUT % 74.6 % (47.0-73.0); PLATELET COUNT AUTOMATED 221 10*3/uL (130-400); RED BLOOD COUNT 4.82 10*6/uL (4.50-5.90); RED CELL DISTRI WIDTH 12.8 % (0-14.5); WHITE BLOOD COUNT 7.6 10*3/uL (4.8-10.8)
[2020-12-22 11:28] LABS: ALBUMIN 3.7 gm/dl (3.1-4.5); ALKALINE PHOSPHATASE 112 U/L (45-117); BUN 15 mg/dl (7-24); CHLORIDE 106 mmol/L (98-107); CHOLESTEROL 180 mg/dL (<200); CREATININE 1.43 mg/dL (0.70-1.30); LDL CHOLESTEROL 113 mg/dL (9-159); POTASSIUM 4.4 mmol/L (3.5-5.1); SGOT/AST 12 IU/L (3-35); SGPT/ALT 26 U/L (12-78); SODIUM 136 mmol/L (136-145); TOTAL PROTEIN 7.6 gm/dL (6.4-8.2); TRIGLYCERIDES 163 mg/dl (<150)
[2020-12-22 11:32] LABS: GAMMA GLUTAMYL TRANSPEPTIDASE 56 U/L (15-85); URIC ACID 4.9 mg/dL (3.5-7.2)
== END | disposition home or self-care (01) ==
LOC: LAB 10:23
PROVIDERS: ATTEND Specialist
DX: T86.298 Other complications of heart transplant (principal); Z94.1 Heart transplant status; Z79.899 Other long term (current) drug therapy

== ENCOUNTER → 2021-02-13 | Outpatient (CLI) | payer OTHER, MEDICAID ==
[2021-02-13 09:58] LABS: BASO # 0.1 10*3/uL (0.0-0.1); BASO % 0.9 % (0.0-1.0); EOS # 0.1 10*3/uL (0.0-0.4); EOS % 0.8 % (1.0-4.0); LYMPH # 1.1 10*3/uL (1.3-4.4); LYMPH % 13.6 % (27.0-41.0); MEAN CELL VOLUME 88.8 fl (80.0-94.0); MEAN CORPUSCULAR HGB 29.5 pg (27.0-31.0); MEAN CORPUSCULAR HGB CONC 33.3 g/dl (33.0-37.0); MEAN PLATELET VOLUME 11.2 fl (9.6-12.3); MONO # 0.7 10*3/uL (0.1-1.0); MONO % 8.2 % (3.0-9.0); NEUT # 6.1 10*3/uL (2.3-7.9); PLATELET COUNT AUTOMATED 213 10*3/uL (130-400); RED BLOOD COUNT 4.84 10*6/uL (4.50-5.90); RED CELL DISTRI WIDTH 12.9 % (0-14.5)
[2021-02-13 10:16] LABS: CREATININE 1.5 mg/dL (0.70-1.30); POTASSIUM 4.8 mmol/L (3.5-5.1); TOTAL PROTEIN 7.7 gm/dL (6.4-8.2)
== END | disposition home or self-care (01) ==
LOC: LAB 09:37
PROVIDERS: ATTEND Specialist
DX: Z01.812 Encounter for preprocedural laboratory examination (principal); T86.298 Other complications of heart transplant; Z79.899 Other long term (current) drug therapy; Z94.1 Heart transplant status

== ENCOUNTER → 2021-03-21 | Outpatient (CLI) | payer OTHER, MEDICAID | END | disposition home or self-care (01) | LOC: CARD 13:33 | PROVIDERS: ATTEND Specialist | DX: I51.7 Cardiomegaly (principal); Z94.0 Kidney transplant status ==

== ENCOUNTER → 2021-05-30 | Outpatient (CLI) | payer OTHER, MEDICAID ==
[2021-05-30 09:51] LABS: BASO # 0.1 10*3/uL (0.0-0.1); BASO % 0.8 % (0.0-1.0); EOS # 0.1 10*3/uL (0.0-0.4); HEMATOCRIT 43.6 % (42.0-52.0); LYMPH # 1.2 10*3/uL (1.3-4.4); LYMPH % 15.9 % (27.0-41.0); MEAN CELL VOLUME 87.7 fl (80.0-94.0); MEAN CORPUSCULAR HGB 29.6 pg (27.0-31.0); MEAN CORPUSCULAR HGB CONC 33.7 g/dl (33.0-37.0); MEAN PLATELET VOLUME 11.2 fl (9.6-12.3); MONO # 0.6 10*3/uL (0.1-1.0); MONO % 7.4 % (3.0-9.0); NEUT # 5.8 10*3/uL (2.3-7.9); NEUT % 74.6 % (47.0-73.0); PLATELET COUNT AUTOMATED 210 10*3/uL (130-400); RED BLOOD COUNT 4.97 10*6/uL (4.50-5.90); WHITE BLOOD COUNT 7.7 10*3/uL (4.8-10.8)
[2021-05-30 10:09] LABS: ALBUMIN 3.8 gm/dl (3.1-4.5); BUN 16 mg/dl (7-24); CHLORIDE 104 mmol/L (98-107); CHOLESTEROL 166 mg/dL (<200); CREATININE 1.37 mg/dL (0.70-1.30); GAMMA GLUTAMYL TRANSPEPTIDASE 78 U/L (15-85); POTASSIUM 4.1 mmol/L (3.5-5.1); SGOT/AST 19 IU/L (3-35); SGPT/ALT 29 U/L (12-78); SODIUM 137 mmol/L (136-145); TOTAL PROTEIN 7.3 gm/dL (6.4-8.2); TRIGLYCERIDES 197 mg/dl (<150); URIC ACID 4.8 mg/dL (3.5-7.2)
[2021-05-30 10:10] LABS: ALKALINE PHOSPHATASE 93 U/L (45-117); LDL CHOLESTEROL 93 mg/dL (9-159)
== END | disposition home or self-care (01) ==
LOC: LAB 09:17
PROVIDERS: ATTEND Specialist
DX: Z01.812 Encounter for preprocedural laboratory examination (principal); T86.298 Other complications of heart transplant; Z79.899 Other long term (current) drug therapy; Z94.1 Heart transplant status

== ENCOUNTER → 2021-11-15 | Outpatient (CLI) | payer OTHER, MEDICAID ==
[2021-11-15 10:42] LABS: BASO % 0.5 % (0.0-1.0); EOS % 0.4 % (1.0-4.0); HEMATOCRIT 43.6 % (42.0-52.0); LYMPH # 1.3 10*3/uL (1.3-4.4); LYMPH % 15.4 % (27.0-41.0); MEAN CELL VOLUME 89.9 fl (80.0-94.0); MEAN CORPUSCULAR HGB 31.1 pg (27.0-31.0); MEAN CORPUSCULAR HGB CONC 34.6 g/dl (33.0-37.0); MONO # 0.6 10*3/uL (0.1-1.0); MONO % 7.6 % (3.0-9.0); NEUT # 6.2 10*3/uL (2.3-7.9); NEUT % 75.9 % (47.0-73.0); PLATELET COUNT AUTOMATED 229 10*3/uL (130-400); RED BLOOD COUNT 4.85 10*6/uL (4.50-5.90); RED CELL DISTRI WIDTH 13.1 % (0-14.5); WHITE BLOOD COUNT 8.2 10*3/uL (4.8-10.8)
[2021-11-15 11:00] LABS: BUN 13 mg/dl (7-24); CHLORIDE 104 mmol/L (98-107); CREATININE 1.37 mg/dL (0.70-1.30); GAMMA GLUTAMYL TRANSPEPTIDASE 75 U/L (15-85); POTASSIUM 4.1 mmol/L (3.5-5.1); SGOT/AST 20 IU/L (3-35); SGPT/ALT 26 U/L (12-78); SODIUM 136 mmol/L (136-145); URIC ACID 4.6 mg/dL (3.5-7.2)
[2021-11-15 11:04] LABS: ALKALINE PHOSPHATASE 85 U/L (45-117); CHOLESTEROL 146 mg/dL (<200); LDL CHOLESTEROL 85 mg/dL (9-159); TOTAL PROTEIN 7.4 gm/dL (6.4-8.2); TRIGLYCERIDES 140 mg/dl (<150)
== END | disposition home or self-care (01) ==
LOC: US 09:00 → LAB 09:20
PROVIDERS: ATTEND Specialist
DX: Z01.812 Encounter for preprocedural laboratory examination (principal); R19.07 Generalized intra-abdominal and pelvic swelling, mass and lump; T86.298 Other complications of heart transplant; Z94.1 Heart transplant status; Z79.899 Other long term (current) drug therapy

== ENCOUNTER → 2022-02-08 | Outpatient (CLI) | payer OTHER, MEDICAID ==
[2022-02-08 10:09] LABS: BASO # 0.1 10*3/uL (0.0-0.1); BASO % 0.7 % (0.0-1.0); EOS % 0.4 % (1.0-4.0); HEMATOCRIT 49.9 % (42.0-52.0); LYMPH # 1.1 10*3/uL (1.3-4.4); LYMPH % 13.7 % (27.0-41.0); MEAN CELL VOLUME 91.7 fl (80.0-94.0); MEAN CORPUSCULAR HGB 31.6 pg (27.0-31.0); MEAN CORPUSCULAR HGB CONC 34.5 g/dl (33.0-37.0); MEAN PLATELET VOLUME 11.2 fl (9.6-12.3); MONO # 0.6 10*3/uL (0.1-1.0); NEUT # 6.3 10*3/uL (2.3-7.9); NEUT % 77.8 % (47.0-73.0); PLATELET COUNT AUTOMATED 204 10*3/uL (130-400); RED BLOOD COUNT 5.44 10*6/uL (4.50-5.90); RED CELL DISTRI WIDTH 13.2 % (0-14.5)
[2022-02-08 10:27] LABS: BUN 9 mg/dl (7-24); CHLORIDE 107 mmol/L (98-107); CHOLESTEROL 162 mg/dL (<200); CREATININE 1.26 mg/dL (0.70-1.30); GAMMA GLUTAMYL TRANSPEPTIDASE 46 U/L (15-85); POTASSIUM 5.1 mmol/L (3.5-5.1); SGOT/AST 19 IU/L (3-35); SGPT/ALT 26 U/L (12-78); SODIUM 138 mmol/L (136-145); TRIGLYCERIDES 144 mg/dl (<150); URIC ACID 6.1 mg/dL (3.5-7.2)
[2022-02-08 10:28] LABS: ALKALINE PHOSPHATASE 90 U/L (45-117); TOTAL PROTEIN 7.6 gm/dL (6.4-8.2)
[2022-02-08 10:29] LABS: LDL CHOLESTEROL 95 mg/dL (9-159)
== END | disposition home or self-care (01) ==
LOC: LAB 09:27
PROVIDERS: ATTEND Specialist
DX: T86.298 Other complications of heart transplant (principal); Z01.812 Encounter for preprocedural laboratory examination; Z79.899 Other long term (current) drug therapy; E78.5 Hyperlipidemia, unspecified; Z94.1 Heart transplant status

== ENCOUNTER → 2022-03-30 | Outpatient (CLI) | payer OTHER, MEDICAID ==
[2022-03-30 09:51] LABS: BASO % 0.6 % (0.0-1.0); EOS % 0.6 % (1.0-4.0); HEMATOCRIT 46.4 % (42.0-52.0); LYMPH # 1.2 10*3/uL (1.3-4.4); LYMPH % 16.7 % (27.0-41.0); MEAN CELL VOLUME 92.4 fl (80.0-94.0); MEAN CORPUSCULAR HGB 30.9 pg (27.0-31.0); MEAN CORPUSCULAR HGB CONC 33.4 g/dl (33.0-37.0); MEAN PLATELET VOLUME 11.4 fl (9.6-12.3); MONO # 0.6 10*3/uL (0.1-1.0); MONO % 8.7 % (3.0-9.0); NEUT # 5.1 10*3/uL (2.3-7.9); NEUT % 73.1 % (47.0-73.0); PLATELET COUNT AUTOMATED 197 10*3/uL (130-400); RED BLOOD COUNT 5.02 10*6/uL (4.50-5.90); RED CELL DISTRI WIDTH 13.3 % (0-14.5)
[2022-03-30 10:32] LABS: ALKALINE PHOSPHATASE 79 U/L (45-117); BUN 19 mg/dl (7-24); CHLORIDE 108 mmol/L (98-107); CHOLESTEROL 142 mg/dL (<200); CREATININE 1.32 mg/dL (0.70-1.30); GAMMA GLUTAMYL TRANSPEPTIDASE 41 U/L (15-85); LDL CHOLESTEROL 74 mg/dL (9-159); POTASSIUM 5.6 mmol/L (3.5-5.1); SGOT/AST 14 IU/L (3-35); SGPT/ALT 22 U/L (12-78); SODIUM 139 mmol/L (136-145); TOTAL PROTEIN 7.2 gm/dL (6.4-8.2); TRIGLYCERIDES 132 mg/dl (<150); URIC ACID 5.8 mg/dL (3.5-7.2)
== END | disposition home or self-care (01) ==
LOC: RAD 09:00 → LAB 09:10
PROVIDERS: Specialist; ATTEND Internal Medicine Advanced Heart Failure and Transplant Cardiology
DX: M85.852 Other specified disorders of bone density and structure, left thigh (principal); T86.298 Other complications of heart transplant; Z94.1 Heart transplant status; Z79.899 Other long term (current) drug therapy; D64.9 Anemia, unspecified; E78.5 Hyperlipidemia, unspecified; Z13.820 Encounter for screening for osteoporosis; Z91.89 Other specified personal risk factors, not elsewhere classified

== ENCOUNTER → 2022-04-19 | Outpatient (CLI) | payer OTHER, MEDICAID | END | disposition home or self-care (01) | LOC: LAB 09:38 | PROVIDERS: ATTEND Specialist | DX: T86.298 Other complications of heart transplant (principal); Z79.899 Other long term (current) drug therapy; D64.9 Anemia, unspecified ==

== ENCOUNTER → 2022-08-03 | Outpatient (CLI) | payer OTHER, MEDICAID ==
[2022-08-03 10:13] LABS: BASO # 0.1 10*3/uL (0.0-0.1); BASO % 0.7 % (0.0-1.0); EOS % 0.5 % (1.0-4.0); HEMATOCRIT 45.3 % (42.0-52.0); LYMPH # 1.4 10*3/uL (1.3-4.4); LYMPH % 17.7 % (27.0-41.0); MEAN CELL VOLUME 91.7 fl (80.0-94.0); MEAN CORPUSCULAR HGB 30.4 pg (27.0-31.0); MEAN CORPUSCULAR HGB CONC 33.1 g/dl (33.0-37.0); MEAN PLATELET VOLUME 11.1 fl (9.6-12.3); MONO # 0.6 10*3/uL (0.1-1.0); MONO % 7.5 % (3.0-9.0); NEUT # 5.6 10*3/uL (2.3-7.9); NEUT % 73.2 % (47.0-73.0); PLATELET COUNT AUTOMATED 205 10*3/uL (130-400); RED BLOOD COUNT 4.94 10*6/uL (4.50-5.90); WHITE BLOOD COUNT 7.7 10*3/uL (4.8-10.8)
[2022-08-03 10:29] LABS: ALKALINE PHOSPHATASE 92 U/L (46-116); BUN 15 mg/dl (9-23); CHLORIDE 106 mmol/L (98-107); CHOLESTEROL 140 mg/dL (<200); GAMMA GLUTAMYL TRANSPEPTIDASE 29 U/L (0-73); LDL CHOLESTEROL 74 mg/dL (9-159); POTASSIUM 4.9 mmol/L (3.4-5.1); TOTAL PROTEIN 7.2 gm/dL (6.0-8.0); TRIGLYCERIDES 159 mg/dl (<150); URIC ACID 5.1 mg/dL (3.1-9.2)
[2022-08-03 10:30] LABS: SGPT/ALT < 7 U/L (10-49)
== END | disposition home or self-care (01) ==
LOC: LAB 09:52
PROVIDERS: ATTEND Specialist
DX: T86.298 Other complications of heart transplant (principal); Z94.1 Heart transplant status; D84.9 Immunodeficiency, unspecified; Z79.899 Other long term (current) drug therapy

== ENCOUNTER → 2022-09-05 | Outpatient (CLI) | payer OTHER, MEDICAID ==
[2022-09-05 10:50] LABS: BASO % 0.6 % (0.0-1.0); EOS % 0.4 % (1.0-4.0); HEMATOCRIT 42.3 % (42.0-52.0); LYMPH % 13.7 % (27.0-41.0); MEAN CELL VOLUME 89.2 fl (80.0-94.0); MEAN CORPUSCULAR HGB CONC 33.6 g/dl (33.0-37.0); MEAN PLATELET VOLUME 11.4 fl (9.6-12.3); MONO # 0.5 10*3/uL (0.1-1.0); MONO % 7.2 % (3.0-9.0); NEUT # 5.7 10*3/uL (2.3-7.9); NEUT % 77.8 % (47.0-73.0); PLATELET COUNT AUTOMATED 196 10*3/uL (130-400); RED BLOOD COUNT 4.74 10*6/uL (4.50-5.90); RED CELL DISTRI WIDTH 12.7 % (0-14.5); WHITE BLOOD COUNT 7.3 10*3/uL (4.8-10.8)
[2022-09-05 11:08] LABS: ALKALINE PHOSPHATASE 80 U/L (46-116); BUN 11 mg/dl (9-23); CHLORIDE 105 mmol/L (98-107); CHOLESTEROL 114 mg/dL (<200); GAMMA GLUTAMYL TRANSPEPTIDASE 26 U/L (0-73); LDL CHOLESTEROL 60 mg/dL (9-159); POTASSIUM 4.6 mmol/L (3.4-5.1); SGPT/ALT 9 U/L (10-49); TOTAL PROTEIN 6.7 gm/dL (6.0-8.0); TRIGLYCERIDES 99 mg/dl (<150); URIC ACID 5.9 mg/dL (3.7-9.2)
== END | disposition home or self-care (01) ==
LOC: LAB 00:48
PROVIDERS: ATTEND Specialist
DX: T86.298 Other complications of heart transplant (principal); D84.9 Immunodeficiency, unspecified; Z79.899 Other long term (current) drug therapy

== ENCOUNTER → 2023-01-04 | Outpatient (CLI) | payer OTHER, MEDICAID ==
[2023-01-04 10:17] LABS: BASO % 0.6 % (0.0-1.0); EOS % 0.3 % (1.0-4.0); LYMPH # 1.3 10*3/uL (1.3-4.4); LYMPH % 17.4 % (27.0-41.0); MEAN CELL VOLUME 90.5 fl (80.0-94.0); MEAN CORPUSCULAR HGB CONC 33.1 g/dl (33.0-37.0); MONO # 0.5 10*3/uL (0.1-1.0); MONO % 6.4 % (3.0-9.0); NEUT # 5.4 10*3/uL (2.3-7.9); NEUT % 74.7 % (47.0-73.0); PLATELET COUNT AUTOMATED 221 10*3/uL (130-400); RED BLOOD COUNT 4.64 10*6/uL (4.50-5.90); RED CELL DISTRI WIDTH 13.1 % (0-14.5); WHITE BLOOD COUNT 7.2 10*3/uL (4.8-10.8)
[2023-01-04 10:41] LABS: ALKALINE PHOSPHATASE 92 U/L (46-116); BUN 11 mg/dl (9-23); CHLORIDE 105 mmol/L (98-107); CHOLESTEROL 135 mg/dL (<200); GAMMA GLUTAMYL TRANSPEPTIDASE 25 U/L (0-73); LDL CHOLESTEROL 69 mg/dL (9-159); POTASSIUM 4.5 mmol/L (3.4-5.1); TOTAL PROTEIN 7.4 gm/dL (6.0-8.0); TRIGLYCERIDES 112 mg/dl (<150); URIC ACID 5.1 mg/dL (3.7-9.2)
[2023-01-04 10:42] LABS: SGPT/ALT < 7 U/L (10-49)
== END | disposition home or self-care (01) ==
LOC: LAB 09:49
PROVIDERS: ATTEND Specialist
DX: Z01.812 Encounter for preprocedural laboratory examination (principal); D84.9 Immunodeficiency, unspecified; E78.5 Hyperlipidemia, unspecified; Z79.899 Other long term (current) drug therapy; Z94.1 Heart transplant status

== ENCOUNTER 2023-03-14 18:11 | Emergency (ER) | payer OTHER, MEDICAID ==
[~2023-03-14] VITALS: Ht 190.5 cm; Wt 73.7 kg
[2023-03-14 19:22] LABS: BASO % 0.4 % (0.0-1.0); EOS % 0.3 % (1.0-4.0); HEMATOCRIT 37.2 % (42.0-52.0); LYMPH # 1.2 10*3/uL (1.3-4.4); LYMPH % 14.9 % (27.0-41.0); MEAN CELL VOLUME 90.1 fl (80.0-94.0); MEAN CORPUSCULAR HGB CONC 33.3 g/dl (33.0-37.0); MEAN PLATELET VOLUME 10.8 fl (9.6-12.3); MONO # 0.5 10*3/uL (0.1-1.0); MONO % 6.1 % (3.0-9.0); NEUT # 6.1 10*3/uL (2.3-7.9); PLATELET COUNT AUTOMATED 212 10*3/uL (130-400); RED BLOOD COUNT 4.13 10*6/uL (4.50-5.90); RED CELL DISTRI WIDTH 13.3 % (0-14.5); WHITE BLOOD COUNT 7.8 10*3/uL (4.8-10.8)
[2023-03-14 19:42] LABS: ALKALINE PHOSPHATASE 84 U/L (46-116); BUN 22 mg/dl (9-23); CHLORIDE 103 mmol/L (98-107); POTASSIUM 3.7 mmol/L (3.4-5.1); SGPT/ALT < 7 U/L (10-49); TOTAL PROTEIN 7.1 gm/dL (6.0-8.0)
[2023-03-14] MEDS ORDERED: PREDNISONE20 M1 PO (20:38)
[2023-03-14] MEDS ORDERED: METHOCARBAMOL500 M1 PO (20:38)
== END 2023-03-14 21:02 | disposition home or self-care (01) ==
LOC: ED 18:11
PROVIDERS: Internal Medicine
DX: S29.012A Strain of muscle and tendon of back wall of thorax, initial encounter (principal); I50.9 Heart failure, unspecified; J44.9 Chronic obstructive pulmonary disease, unspecified; Z98.890 Other specified postprocedural states; Z95.5 Presence of coronary angioplasty implant and graft; F17.200 Nicotine dependence, unspecified, uncomplicated; X58.XXXA Exposure to other specified factors, initial encounter; Y93.89 Activity, other specified; Y92.009 Unspecified place in unspecified non-institutional (private) residence as the place of occurrence of the external cause; Y99.8 Other external cause status

== ENCOUNTER → 2023-03-21 | Outpatient (CLI) | payer OTHER, MEDICAID ==
[~2023-03-21] MED LIST changes: +METHOCARBAMOL500 M1 PO; +PREDNISONE20 M1 PO
== END | disposition home or self-care (01) ==
LOC: LAB 09:05
PROVIDERS: ATTEND Specialist
DX: Z01.812 Encounter for preprocedural laboratory examination (principal); T86.298 Other complications of heart transplant; Z94.1 Heart transplant status

== ENCOUNTER → 2023-05-07 | Outpatient (CLI) | payer OTHER, MEDICAID ==
[2023-05-07 08:36] LABS: BASO % 0.6 % (0.0-1.0); EOS # 0.1 10*3/uL (0.0-0.4); EOS % 0.9 % (1.0-4.0); HEMATOCRIT 40.6 % (42.0-52.0); LYMPH # 1.3 10*3/uL (1.3-4.4); LYMPH % 19.2 % (27.0-41.0); MEAN CELL VOLUME 92.5 fl (80.0-94.0); MEAN CORPUSCULAR HGB 30.3 pg (27.0-31.0); MEAN CORPUSCULAR HGB CONC 32.8 g/dl (33.0-37.0); MEAN PLATELET VOLUME 10.7 fl (9.6-12.3); MONO # 0.5 10*3/uL (0.1-1.0); MONO % 7.7 % (3.0-9.0); NEUT # 4.6 10*3/uL (2.3-7.9); NEUT % 71.3 % (47.0-73.0); PLATELET COUNT AUTOMATED 213 10*3/uL (130-400); RED BLOOD COUNT 4.39 10*6/uL (4.50-5.90); RED CELL DISTRI WIDTH 13.5 % (0-14.5); WHITE BLOOD COUNT 6.5 10*3/uL (4.8-10.8)
[2023-05-07 08:46] LABS: INTERNATIONAL NORM RATIO 1.1 (2.0-3.5)
[2023-05-07 09:37] LABS: ALKALINE PHOSPHATASE 88 U/L (46-116); BUN 10 mg/dl (9-23); CHLORIDE 109 mmol/L (98-107); CHOLESTEROL 122 mg/dL (<200); GAMMA GLUTAMYL TRANSPEPTIDASE 24 U/L (0-73); LDL CHOLESTEROL 62 mg/dL (9-159); POTASSIUM 4.8 mmol/L (3.4-5.1); TOTAL PROTEIN 6.5 gm/dL (6.0-8.0); TRIGLYCERIDES 104 mg/dl (<150); URIC ACID 4.8 mg/dL (3.7-9.2)
[2023-05-07 09:38] LABS: SGPT/ALT < 7 U/L (10-49)
== END | disposition home or self-care (01) ==
LOC: LAB 00:27
PROVIDERS: ATTEND Specialist
DX: Z01.812 Encounter for preprocedural laboratory examination (principal); T86.298 Other complications of heart transplant; D84.9 Immunodeficiency, unspecified; Z79.899 Other long term (current) drug therapy; Z94.1 Heart transplant status

== ENCOUNTER → 2023-06-28 | Outpatient (CLI) | payer OTHER, MEDICAID ==
[2023-06-28 09:47] LABS: BASO % 0.5 % (0.0-1.0); EOS # 0.1 10*3/uL (0.0-0.4); EOS % 0.7 % (1.0-4.0); HEMATOCRIT 39.1 % (42.0-52.0); LYMPH # 1.3 10*3/uL (1.3-4.4); LYMPH % 14.1 % (27.0-41.0); MEAN CELL VOLUME 92.4 fl (80.0-94.0); MEAN CORPUSCULAR HGB 29.6 pg (27.0-31.0); MEAN PLATELET VOLUME 10.6 fl (9.6-12.3); MONO # 0.6 10*3/uL (0.1-1.0); MONO % 7.1 % (3.0-9.0); NEUT # 6.9 10*3/uL (2.3-7.9); NEUT % 77.3 % (47.0-73.0); PLATELET COUNT AUTOMATED 297 10*3/uL (130-400); RED BLOOD COUNT 4.23 10*6/uL (4.50-5.90); RED CELL DISTRI WIDTH 13.5 % (0-14.5); WHITE BLOOD COUNT 8.9 10*3/uL (4.8-10.8)
[2023-06-28 10:22] LABS: ALKALINE PHOSPHATASE 95 U/L (46-116); BUN 13 mg/dl (9-23); CHLORIDE 106 mmol/L (98-107); CHOLESTEROL 140 mg/dL (<200); GAMMA GLUTAMYL TRANSPEPTIDASE 34 U/L (0-73); LDL CHOLESTEROL 75 mg/dL (9-159); TOTAL PROTEIN 6.9 gm/dL (6.0-8.0); TRIGLYCERIDES 104 mg/dl (<150); URIC ACID 5.6 mg/dL (3.7-9.2)
[2023-06-28 10:26] LABS: SGPT/ALT < 7 U/L (5-49)
== END | disposition home or self-care (01) ==
LOC: LAB 03:26
PROVIDERS: ATTEND Specialist
DX: Z01.812 Encounter for preprocedural laboratory examination (principal); D84.9 Immunodeficiency, unspecified; Z79.899 Other long term (current) drug therapy; T86.298 Other complications of heart transplant; Z94.1 Heart transplant status

== ENCOUNTER → 2023-07-04 | Outpatient (CLI) | payer OTHER, MEDICAID | END | disposition home or self-care (01) | LOC: CT 00:08 | PROVIDERS: ATTEND Physician Assistant | DX: N20.0 Calculus of kidney (principal); J92.9 Pleural plaque without asbestos; K80.20 Calculus of gallbladder without cholecystitis without obstruction; J43.8 Other emphysema; F17.200 Nicotine dependence, unspecified, uncomplicated ==

== ENCOUNTER → 2023-08-29 | Outpatient (CLI) | payer OTHER, MEDICAID ==
[2023-08-29 10:05] LABS: BASO # 0.1 10*3/uL (0.0-0.1); BASO % 0.7 % (0.0-1.0); EOS % 0.4 % (1.0-4.0); LYMPH # 1.2 10*3/uL (1.3-4.4); LYMPH % 15.1 % (27.0-41.0); MEAN CELL VOLUME 92.3 fl (80.0-94.0); MEAN CORPUSCULAR HGB 29.7 pg (27.0-31.0); MEAN CORPUSCULAR HGB CONC 32.2 g/dl (33.0-37.0); MEAN PLATELET VOLUME 11.3 fl (9.6-12.3); MONO # 0.6 10*3/uL (0.1-1.0); MONO % 7.7 % (3.0-9.0); NEUT # 5.8 10*3/uL (2.3-7.9); NEUT % 75.7 % (47.0-73.0); PLATELET COUNT AUTOMATED 210 10*3/uL (130-400); RED BLOOD COUNT 4.44 10*6/uL (4.50-5.90); WHITE BLOOD COUNT 7.6 10*3/uL (4.8-10.8)
[2023-08-29 10:34] LABS: ALKALINE PHOSPHATASE 86 U/L (46-116); BUN 10 mg/dl (9-23); CHLORIDE 106 mmol/L (98-107); CHOLESTEROL 114 mg/dL (<200); GAMMA GLUTAMYL TRANSPEPTIDASE 23 U/L (0-73); LDL CHOLESTEROL 59 mg/dL (9-159); POTASSIUM 4.8 mmol/L (3.4-5.1); TOTAL PROTEIN 6.9 gm/dL (6.0-8.0); TRIGLYCERIDES 96 mg/dl (<150); URIC ACID 4.8 mg/dL (3.7-9.2)
[2023-08-29 10:37] LABS: SGPT/ALT < 7 U/L (5-49)
== END | disposition home or self-care (01) ==
LOC: LAB 01:42
PROVIDERS: ATTEND Specialist
DX: Z01.812 Encounter for preprocedural laboratory examination (principal); D84.9 Immunodeficiency, unspecified; T86.298 Other complications of heart transplant; Z94.1 Heart transplant status; Z79.899 Other long term (current) drug therapy

== ENCOUNTER → 2023-11-19 | Outpatient (CLI) | payer OTHER, MEDICAID ==
[2023-11-19 09:52] LABS: BASO # 0.1 10*3/uL (0.0-0.1); BASO % 0.7 % (0.0-1.0); EOS # 0.1 10*3/uL (0.0-0.4); EOS % 0.8 % (1.0-4.0); HEMATOCRIT 38.1 % (42.0-52.0); LYMPH # 1.1 10*3/uL (1.3-4.4); LYMPH % 15.3 % (27.0-41.0); MEAN CELL VOLUME 93.4 fl (80.0-94.0); MEAN CORPUSCULAR HGB 30.6 pg (27.0-31.0); MEAN CORPUSCULAR HGB CONC 32.8 g/dl (33.0-37.0); MEAN PLATELET VOLUME 10.3 fl (9.6-12.3); MONO # 0.5 10*3/uL (0.1-1.0); MONO % 6.6 % (3.0-9.0); NEUT # 5.7 10*3/uL (2.3-7.9); NEUT % 76.5 % (47.0-73.0); PLATELET COUNT AUTOMATED 194 10*3/uL (130-400); RED BLOOD COUNT 4.08 10*6/uL (4.50-5.90); RED CELL DISTRI WIDTH 14.6 % (0-14.5); WHITE BLOOD COUNT 7.4 10*3/uL (4.8-10.8)
[2023-11-19 10:19] LABS: ALKALINE PHOSPHATASE 82 U/L (46-116); BUN 14 mg/dl (9-23); CHLORIDE 106 mmol/L (98-107); CHOLESTEROL 123 mg/dL (<200); GAMMA GLUTAMYL TRANSPEPTIDASE 31 U/L (0-73); LDL CHOLESTEROL 65 mg/dL (9-159); POTASSIUM 4.8 mmol/L (3.4-5.1); TRIGLYCERIDES 84 mg/dl (<150); URIC ACID 5.3 mg/dL (3.7-9.2)
[2023-11-19 10:22] LABS: SGPT/ALT < 7 U/L (5-49)
== END | disposition home or self-care (01) ==
LOC: LAB 00:57
PROVIDERS: ATTEND Specialist
DX: D84.9 Immunodeficiency, unspecified (principal); E78.5 Hyperlipidemia, unspecified; Z79.899 Other long term (current) drug therapy; Z94.1 Heart transplant status

== ENCOUNTER → 2024-02-12 | Outpatient (CLI) | payer OTHER, MEDICAID | END | disposition home or self-care (01) | LOC: LAB 00:16 | PROVIDERS: ATTEND Specialist | DX: D84.9 Immunodeficiency, unspecified (principal); T86.298 Other complications of heart transplant; Z94.1 Heart transplant status; Z79.899 Other long term (current) drug therapy ==

== ENCOUNTER → 2024-04-08 | Outpatient (CLI) | payer OTHER, MEDICAID ==
[2024-04-08 09:20] LABS: BASO # 0.1 10*3/uL (0.0-0.1); BASO % 0.5 % (0.0-1.0); EOS # 0.1 10*3/uL (0.0-0.4); EOS % 0.6 % (1.0-4.0); HEMATOCRIT 35.9 % (42.0-52.0); LYMPH % 9.8 % (27.0-41.0); MEAN CELL VOLUME 90.7 fl (80.0-94.0); MEAN CORPUSCULAR HGB 29.3 pg (27.0-31.0); MEAN CORPUSCULAR HGB CONC 32.3 g/dl (33.0-37.0); MEAN PLATELET VOLUME 10.4 fl (9.6-12.3); MONO # 0.4 10*3/uL (0.1-1.0); MONO % 4.2 % (3.0-9.0); NEUT # 8.6 10*3/uL (2.3-7.9); NEUT % 84.4 % (47.0-73.0); PLATELET COUNT AUTOMATED 301 10*3/uL (130-400); RED BLOOD COUNT 3.96 10*6/uL (4.50-5.90); RED CELL DISTRI WIDTH 13.2 % (0-14.5); WHITE BLOOD COUNT 10.1 10*3/uL (4.8-10.8)
[2024-04-08 09:50] LABS: ALKALINE PHOSPHATASE 93 U/L (46-116); BUN 11 mg/dl (9-23); CHLORIDE 102 mmol/L (98-107); CHOLESTEROL 109 mg/dL (<200); GAMMA GLUTAMYL TRANSPEPTIDASE 36 U/L (0-73); LDL CHOLESTEROL 65 mg/dL (9-159); POTASSIUM 4.7 mmol/L (3.4-5.1); TOTAL PROTEIN 7.2 gm/dL (6.0-8.0); TRIGLYCERIDES 80 mg/dl (<150); URIC ACID 4.4 mg/dL (3.7-9.2)
[2024-04-08 09:51] LABS: SGPT/ALT < 7 U/L (5-49)
== END | disposition home or self-care (01) ==
LOC: LAB 08:31
PROVIDERS: ATTEND Specialist
DX: Z01.812 Encounter for preprocedural laboratory examination (principal); D84.9 Immunodeficiency, unspecified; Z94.1 Heart transplant status; Z79.899 Other long term (current) drug therapy